=== PATIENT | male | born 1970 | race Caucasian/White ===

== ENCOUNTER 2020-11-29 15:12 | Outpatient (REF) | payer MEDICARE, MEDICAID, SELFPAY ==
[2020-11-29 16:32] LABS: Estimated Average Glucose 97 mg/dL
[2020-11-29 16:48] LABS: Alanine Aminotransferase 24 U/L (0-40); Aspartate Amino Transferase 41 U/L (5-37); Cholesterol 178 mg/dL; Glucose Fasting 80 mg/dL (60-99); HDL Cholesterol 67 mg/dL; LDL Cholesterol Calculated 98 mg/dl; Triglycerides 67 mg/dL
[2020-11-29 17:08] LABS: PSA,Total (Free>4and<10) 0.75 ng/mL (0.00-4.00); Vitamin D 25-OH Total 24.9 ng/mL (>30)
== END 2020-11-29 15:13 | disposition home or self-care (01) ==
LOC: HO.HMGCLDS 15:12
PROVIDERS: PCP Internal Medicine; Visit Provider Internal Medicine
DX: R73.9 Hyperglycemia, unspecified (principal); M81.0 Age-related osteoporosis without current pathological fracture; Q78.0 Osteogenesis imperfecta; I10 Essential (primary) hypertension; Z12.5 Encounter for screening for malignant neoplasm of prostate
CPT/HCPCS: 36415; 80061; 82306; 82947; 83036; 84153; 84450; 84460

== ENCOUNTER 2022-06-25 12:56 | Outpatient (REF) | payer MEDICARE, MEDICAID, SELFPAY ==
[2022-06-25 14:28] LABS: Anion Gap 11 (12-20); Blood Urea Nitrogen 8 mg/dL (9-16); Calcium 11.1 mg/dL (8.4-10.2); Carbon Dioxide 30 mmol/L (22-29); Chloride 99 mmol/L (96-108); Cholesterol 160 mg/dL; Estimated Glomerular Filt Rate > 60; Glucose Fasting 92 mg/dL (60-99); HDL Cholesterol 61 mg/dL; LDL Cholesterol Calculated 86 mg/dl; Potassium 4.2 mmol/L (3.3-5.1); Sodium 136 mmol/L (135-145); Triglycerides 68 mg/dL
== END 2022-06-25 12:57 | disposition home or self-care (01) ==
LOC: HO.HMGCLDS 12:56
PROVIDERS: PCP Internal Medicine; Visit Provider Internal Medicine
DX: I10 Essential (primary) hypertension (principal)
CPT/HCPCS: 36415; 80048; 80061

== ENCOUNTER 2023-01-16 12:55 | Outpatient (AMB) | payer MEDICARE, MEDICAID, SELFPAY ==
[2023-01-16 13:18] VITALS: BP 110/80; PULSE 77; O2SAT 97
--- NOTE | 2023-01-16 13:18 | MHC.PC.OV ---
Vital Signs 01/16/23 13:18 BMI Reason not done Patient refused/unable BP 110/80 Blood Pressure Location Rt brachial Position Sitting Pulse 77 Pulse Source Pulse Oximeter Pulse Oximetry (%) 97 Oxygen Delivery Method Room Air Intake Visit Reasons: Left shoulder pain Intake Note: Pt is here today c/o Lt shoulder pain no injury noted [id number] Allergies erythromycin base Allergy (Mild, Verified 01/16/23 13:19) Gastrointestinal Upset, Stomach upset albuterol Allergy (Unknown, Verified 01/16/23 13:19) Difficulty Breathing Medication List - Last Reconciled 01/16/23 by Ashanti Sims MD aspirin (Adult Low Dose Aspirin) 81 mg PO DAILY calcium acetate(phosphat bind) (Phoslyra) 667 mg PO BID cholecalciferol (vitamin D3) 50 mcg PO DAILY enalapril maleate mg PO ipratropium bromide 2.5 mL inhalation TID [Motorized wheelchair As directed Replacement wheelchair-with recline and tilt options. ] Tobacco use date assessed: 01/16/23 Dental Screening Dental Screen Date: 01/16/23 Did you have a dental visit in the last 12 months?: No Was dental information given to patient?: No HPI Left shoulder pain HPI Details 52-year-old male with history of osteogenesis imperfecta, here today complaining of recurrent pain in his left shoulder lateral aspect. This has been present now for the last several months, no history of any fall, no injury. Patient states that it hurts more when he low lies on his left side. Has tried taking up ibuprofen and Tylenol which affords only temporary relief. [facility] Medical History Cryptorchidism Essential hypertension Intolerance to BiPAP/CPAP Kyphoscoliosis Left shoulder pain Mitral valve regurgitation Mixed hearing loss, bilateral Multiple fractures Myopia of both eyes Obstructive sleep apnea Osteogenesis imperfecta Osteoporosis Otalgia of left ear Pertrochanteric fracture of left femur Restrictive lung disease Surgical History History of stapedectomy S/P balloon mitral valvuloplasty S/P ORIF (open reduction internal fixation) fracture Family History Father Colon cancer, Onset Age: 69 Essential hypertension Asthma Mother Essential hypertension Asthma Social History Housing: Apartment Alcohol intake: current Patient Tobacco Use Status: Former Tobacco user Years Smoked: 17 yrs e-Cigarette/Vaping Use: Never Used Current occupational status: disabled Cognitive needs: No Hearing needs: No Vision needs: Yes Questionnaire PHQ-9 Over the last 2 weeks, how often have you been bothered by any of the following problems? 1. Little interest or pleasure in doing things: not at all 2. Feeling down, depressed, or hopeless: not at all 3. Trouble falling or staying asleep, or sleeping too much: not at all 4. Feeling tired or having little energy: not at all 5. Poor appetite or overeating: not at all 6. Feeling bad about yourself - or that you are a failure or have let yourself or your family down: not at all 7. Trouble concentrating on things, such as reading the newspaper or watching television: not at all 8. Moving or speaking so slowly that other people could have noticed. Or the opposite - being so fidgety or restless that you have been moving around a lot more than usual: not at all 9. Thoughts that you would be better off or of hurting yourself in some way: not at all Total score: 0 Source: Developed by Drs. Cory Giron, Pao Jiang, Justin Obrien and colleagues, with an educational karon from [employer]. Thrive Questionnaire Date Thrive assessed: 01/16/23 I am a: Patient What is your living situation today?: I have a steady place to live Within the past 12 months, did the food you bought not last and you didn't have the money to get more?: Never true Within the past 12 months, did you worry whether your food would run out before you got money to buy more?: Never true Do you have trouble paying for medicines?: No Do you have trouble getting transportation to medical appointments?: No Do you have trouble paying your heating and electricity bill?: No Do you have trouble taking care of your child, family member or friend?: No Do you have trouble with day-to-day activities such as bathing, preparing meals, shopping, managing finances, etc.?: No Are you currently unemployed and looking for a job?: No Are you interested in more education?: No AUDIT C Alcohol Use Questionnaire (AUDIT-C) 1. How often do you have a drink containing alcohol?: Monthly or less 2. How many drinks containing alcohol do you have on a typical day when you are drinking?: 1 or 2 3. How often do you have six or more drinks on one occasion?: Never Total Score: 1 PRIYANKA-7 AMB Questionnaire PRIYANKA-7 Date PRIYANKA - 7 assessed: 01/16/23 Feeling nervous, anxious, or on edge: 0 = Not at all Not being able to stop or control worryin = Not at all Worrying too much about different things: 0 = Not at all Trouble relaxin = Not at all Being so restless that it is hard to sit still: 0 = Not at all Becoming easily annoyed or irritable: 0 = Not at all Feeling afraid as if something awful might happen: 0 = Not at all Total PRIYANKA-7 score (0-4 normal; 5-9 mild; 10-14 moderate; 15-21 severe): 0 Source: Developed by Drs. Cory Giron, Pao Jiang, Justin Obrien and colleagues, with an educational karon from [employer]. Review of Systems Const Reports no additional complaints and Denies weakness Musc Reports no additional complaints, Denies atrophy, Denies deformity, Denies joint swelling, Denies limited range of motion, Denies muscle cramps, Denies muscle weakness, Denies numbness, Denies radiating pain into limb, Denies stiffness and Denies tingling Skin/Breast Denies lesions and Denies rash Neuro Denies numbness, Denies tingling, Denies paresthesias and Denies weakness Physical exam (Primary Care) Vital Signs: Last Vital Signs Pulse 77 01/16/23 13:18 BP 110/80 01/16/23 13:18 Pulse Ox 97 01/16/23 13:18 Oxygen Delivery Method Room Air 01/16/23 13:18 Tobacco/Smoking Status: Tobacco use Status Tobacco use date assessed 01/16/23 01/16/23 13:21 Patient Tobacco Use Status Former Tobacco user 01/16/23 13:21 e-Cigarette/Vaping Use Never Used 01/16/23 13:21 PHQ-9: PHQ-9 Score PHQ-9: Total score 0 01/16/23 13:40 Thrive Assessment: Date of Thrive Assessment Date Thrive assessed 01/16/23 01/16/23 13:26 Const Other: Alert oriented x3 acute cardiorespiratory distress Neck Neck: Yes full ROM, Yes no lymphadenopathy and Yes supple Skin General skin exam: no rashes or lesions noted Neuro Other: Good auto body technician strength bilaterally, MMT 5/5 left upper extremity Extrem Other: Manjula range of motion of left upper extremity and shoulder, no tenderness on palpation over left shoulder joint or subacromial bursa, no gross bone deformity or joint swelling seen Assessment and Plan Assessment & Plan (1) Left shoulder pain: Code(s): M25.512 - Pain in left shoulder Plan: X-ray of left shoulder ordered, advised to try massaging absorbent iva liniment to affected area, and may take an occasional ibuprofen alternating with Tylenol as needed for pain, return to clinic if no improvement of symptoms noted Orders: Orders XR shoulder LT min 2V Today M25.512 - Pain in left shoulder Coding Level of Care Code Est Pt Level 3 (97205) Diagnoses Left shoulder pain M25.512
== END 2023-01-16 14:01 | disposition home or self-care (01) ==
PROVIDERS: PCP Internal Medicine; Visit Provider Internal Medicine
DX: M25.512 Pain in left shoulder (principal)
CPT/HCPCS: 99213

== ENCOUNTER 2023-01-16 13:44 | Outpatient (REF) | payer MEDICARE, MEDICAID, SELFPAY ==
--- NOTE | ~2023-01-16 | XR_ITS ---
EXAMINATION: XR SHOULDER, LEFT CLINICAL INFORMATION: Pain. Patient with history of osteogenesis imperfecta COMPARISON: None available. TECHNIQUE: AP external rotation, Grashey, scapular Y, and axillary views of the left shoulder. FINDINGS: Diffuse demineralization and limited evaluation of the left shoulder due to chronic deformity and examination being performed in wheelchair. No definite acute fracture recognized. The visualized left humerus is shortened and bowed. Left humeral head with multiple sclerotic foci. Elbow articulations do not appear normal. Apparent thoracic cage deformity. Hypertrophic changes visualized cervical spine. Median sternotomy wires are partially visualized. Cardiac silhouette appears prominent. XR/XR shoulder LT min 2V IMPRESSION: Multiple chronic-appearing bony deformities. No definite acute bony pathology given study limitations.
== END 2023-01-16 13:45 | disposition home or self-care (01) ==
LOC: HO.HMGCX 13:44
PROVIDERS: PCP Internal Medicine; Visit Provider Internal Medicine
DX: M25.512 Pain in left shoulder (principal)
CPT/HCPCS: 73030

== ENCOUNTER 2024-08-03 13:07 | Outpatient (AMB) | payer MEDICARE, MEDICAID, SELFPAY ==
--- NOTE | 2024-08-03 13:22 | MHC.PC.OV ---
Vital Signs 08/03/24 13:24 BMI Reason not done Patient refused/unable BP 110/60 Blood Pressure Location Lt brachial Position Sitting Respiration 18 Pulse 91 Pulse Source Pulse Oximeter Temp 98.1 F Temp Source Oral Pulse Oximetry (%) 96 Oxygen Delivery Method Room Air Intake Visit Reasons: f/u back pain, ok'd kat Intake Note: Pt is here today c/o upper right back pain Allergies erythromycin base Allergy (Mild, Verified 08/03/24 15:33) Gastrointestinal Upset, Stomach upset albuterol Allergy (Unknown, Verified 08/03/24 15:33) Difficulty Breathing Medication List - Last Reconciled 08/03/24 by Asahnti Sims MD alum-mag hydroxide-simeth 200-200-20 mg/5 mL (Maalox Advanced) 5 mL PO Q3H PRN aspirin (Adult Low Dose Aspirin) 81 mg PO DAILY cholecalciferol (vitamin D3) 100 mcg PO DAILY losartan 50 mg PO DAILY [Motorized wheelchair As directed Replacement wheelchair-with recline and tilt options. ] Tobacco use date assessed: 08/03/24 Dental Screening Dental Screen Date: 08/03/24 Did you have a dental visit in the last 12 months?: No Did you have a dental problem in the last 6 months where you did not have access to dental care?: No Was dental information given to patient?: No (no teeth) HPI f/u back pain, ok'd kat HPI Details 54-year-old male with history of severe osteogenesis imperfecta currently being followed at [facility] by Dr. Fernanda Vargas , has restrictive lung disease mixed hearing loss, mitral valve regurgitation, and hypertension, here today for follow-up . He has been having intermittent episodes of lower abdominal pain sometimes radiating to the back accompanied by burning on urination which started 2 months ago.. He was initially seen at urgent care clinic and was sent to [facility] due to presence of thickening in the bladder galeana noted on CT scan of the abdomen and pelvis. No kidney stone or renal mass seen Used to smoke cigarettes for a total of 17 years quit approximately 10 years ago patient received treatment for presumed urinary tract infection but urine cultures came back negative. Urine cytology has been sent with results still pending and he is scheduled for a cystoscopy later this month He also complains of occasional pain in right mid back, comes and goes and is unrelated to food intake. He has been seeing Dr. Fernanda Vargas at [facility] endocrine clinic for his osteogenesis imperfecta and osteoporosis. He has been on alendronate initially and then switched to Reclast, last treatment given was in 2017. Patient states that he is overdue for his follow-up visit with her and will schedule appointment. [facility] Medical History (Updated 08/03/24 @ 15:59 by Ashanti Sims MD) Bladder wall thickening Multiple fractures Myopia of both eyes Cryptorchidism Kyphoscoliosis Intolerance to BiPAP/CPAP Obstructive sleep apnea Mixed hearing loss, bilateral Mitral valve regurgitation Osteoporosis Essential hypertension Restrictive lung disease Osteogenesis imperfecta Surgical History S/P ORIF (open reduction internal fixation) fracture History of stapedectomy S/P balloon mitral valvuloplasty Family History Father Colon cancer, Onset Age: 69 Essential hypertension Asthma Mother Essential hypertension Asthma Social History Housing: Apartment Alcohol intake: current Patient Tobacco Use Status: Former Tobacco user Years Smoked: 17 yrs e-Cigarette/Vaping Use: Never Used Current occupational status: disabled Cognitive needs: No Hearing needs: No Vision needs: Yes Questionnaire PHQ-9 Over the last 2 weeks, how often have you been bothered by any of the following problems? 1. Little interest or pleasure in doing things: not at all 2. Feeling down, depressed, or hopeless: not at all 3. Trouble falling or staying asleep, or sleeping too much: not at all 4. Feeling tired or having little energy: not at all 5. Poor appetite or overeating: not at all 6. Feeling bad about yourself - or that you are a failure or have let yourself or your family down: not at all 7. Trouble concentrating on things, such as reading the newspaper or watching television: not at all 8. Moving or speaking so slowly that other people could have noticed. Or the opposite - being so fidgety or restless that you have been moving around a lot more than usual: not at all 9. Thoughts that you would be better off or of hurting yourself in some way: not at all Total score: 0 Depression Screening Interpretation: Negative Depression Screening Done: Yes 77507 - PHQ-9 Billing: Yes Source: Developed by Drs. Cory Giron, Pao Jiang, Justin Obrien and colleagues, with an educational karon from [employer]. Thrive Questionnaire Date Thrive assessed: 07/31/24 I am a: Patient What is your living situation today?: I have a steady place to live Within the past 12 months, did the food you bought not last and you didn't have the money to get more?: Never true Within the past 12 months, did you worry whether your food would run out before you got money to buy more?: Never true Do you have trouble paying for medicines?: No Do you have trouble getting transportation to medical appointments?: No Do you have trouble paying your heating and electricity bill?: No Do you have trouble taking care of your child, family member or friend?: No Do you have trouble with day-to-day activities such as bathing, preparing meals, shopping, managing finances, etc.?: Yes Are you currently unemployed and looking for a job?: No Are you interested in more education?: No Please select the resources that you would like help with: None Currently or been in a relationship where the following occur: No concerns reported THRIVE Score: 0 AUDIT C Alcohol Use Questionnaire (AUDIT-C) 1. How often do you have a drink containing alcohol?: 2-4 times a month 2. How many drinks containing alcohol do you have on a typical day when you are drinking?: 3 or 4 3. How often do you have six or more drinks on one occasion?: Never Total Score: 3 PRIYANKA-7 AMB Questionnaire PRIYANKA-7 Date PRIYANKA - 7 assessed: 08/03/24 Feeling nervous, anxious, or on edge: 0 = Not at all Not being able to stop or control worryin = Not at all Worrying too much about different things: 0 = Not at all Trouble relaxin = Not at all Being so restless that it is hard to sit still: 0 = Not at all Becoming easily annoyed or irritable: 0 = Not at all Feeling afraid as if something awful might happen: 0 = Not at all Total PRIYANKA-7 score (0-4 normal; 5-9 mild; 10-14 moderate; 15-21 severe): 0 Source: Developed by Drs. Cory Giron, Pao Jiang, Justin Obrien and colleagues, with an educational karon from [employer]. Review of Systems Const Denies fever(s) and Denies headache(s) ENT Denies headache(s) and Reports hearing loss Card Reports no additional complaints and Denies dyspnea Resp Denies cough and Denies dyspnea GI Reports no additional complaints, Denies hematochezia and Denies change in bowel habits Reports as per HPI Musc Details: Uses power wheelchair get around Neuro Denies headache(s) Lewis/Lymph Reports no additional complaints Physical exam (Primary Care) Vital Signs: Last Vital Signs Temp 98.1 F 08/03/24 13:24 Pulse 91 08/03/24 13:24 Resp 18 08/03/24 13:24 BP 110/60 08/03/24 13:24 Pulse Ox 96 08/03/24 13:24 Oxygen Delivery Method Room Air 08/03/24 13:24 Tobacco/Smoking Status: Tobacco use Status Tobacco use date assessed 08/03/24 08/03/24 13:24 Patient Tobacco Use Status Former Tobacco user 08/03/24 13:24 e-Cigarette/Vaping Use Never Used 08/03/24 13:24 PHQ-9: PHQ-9 Score PHQ-9: Total score 0 08/03/24 14:10 Depression Screening Interpretation: Negative Thrive Assessment: Date of Thrive Assessment Date Thrive assessed 07/31/24 08/03/24 13:24 Currently or been in a relationship where the following occur: No concerns reported Const Other: Alert oriented x3, no acute cardiorespiratory distress, wheelchair borne Orientation/consciousness: patient oriented x3 [facility] Head: Yes No palpable skull fracture present, No hematoma and No scalp tenderness Face and sinus: Yes face symmetric Mouth: moist mucous membranes Neck Neck: Yes no lymphadenopathy Chest Chest palpation & inspection: no crepitus and no tenderness Resp Effort & Inspection: able to speak in complete sentences Auscultation: clear to auscultation bilaterally Cardio Other: S1-S2 present regular rate and rhythm , systolic murmur left sternal border GI Other: Soft, normal bowel sounds, nontender Back/Spine/Pelvis Other: kyphoscoliosis, no tenderness on palpation Skin General skin exam: no rashes or lesions noted Neuro General: patient oriented x3 Cognition (Neuro): normal cognition Coding Level of Care Code Est Pt Level 4 (27336) Complex EM visit Add On G2211 Diagnoses Osteogenesis imperfecta Q78.0 Osteoporosis M81.0 Bladder wall thickening N32.89 Back pain M54.9 Dyspepsia R10.13 Additional Codes PHQ-9 - 05294 - PHQ-9 Billing: Yes ([id number]) Assessment & Plan Assessment & Plan (1) Osteogenesis imperfecta: Code(s): Q78.0 - Osteogenesis imperfecta Category: Medical Plan: Currently being seen at [facility] endocrine clinic, overdue for his yearly follow-up. Patient states that he was schedule appointment to see if he is due for his Reclast infusion. (2) Osteoporosis: Code(s): M81.0 - Age-related osteoporosis without current pathological fracture Category: Medical Plan: Continue with vitamin-D 3 drops and calcium supplements. Followed at [facility] endocrine clinic by Dr. Essence Vargas (3) Bladder wall thickening: Code(s): N32.89 - Other specified disorders of bladder Category: Medical Plan: Being followed at [facility] with urine cytology results still pending, has an appointment for a cystoscopy next week. (4) Back pain: Code(s): M54.9 - Dorsalgia, unspecified Plan: The history of recent fractures. (5) Dyspepsia: Code(s): R10.13 - Epigastric pain Plan: Prescription sent for Maalox advanced, to take 5 mL every 3 hours as needed for episodes of dyspepsia/ abdominal discomfort to see if it relieves it Medications: New alum-mag hydroxide-simeth 200-200-20 mg/5 mL (Maalox Advanced) 5 mL PO Q3H PRN 3,000 mL 0RF dyspepsia
[2024-08-03 13:24] VITALS: BP 110/60; PULSE 91; RESP 18; TEMP 36.7; O2SAT 96
--- OUTSIDE RECORDS SUMMARY | 2024-08-03 14:29 | XMS_ITS | Data Portability ---
Author Organization [place] [facility], Allergy Address [address] [address] Care Team Providers Care Production Solderer Name Role Phone CHRISTY DENNIS Primary Care Provider Assessment Encounter Date Assessment Date Assessment LastModified by Organization Details LastModified Time 11/24/2023 11/24/2023 Patient presents for cerumen removal. Cerumen removed bilaterally without difficulty. Follow up as scheduled for repeat procedure. mick Not available 11/24/2023 11:50:41 05/06/2024 05/06/2024 Patient presents for cerumen removal. Cerumen removed bilaterally without difficulty. Follow up as scheduled for repeat procedure. mick Not available 05/06/2024 11:52:41 07/12/2024 07/12/2024 53-year-old male with osteogenesis imperfecta and with previous stapedectomy presents for updated hearing test. Audiometric testing was performed today showing stable mixed hearing loss bilaterally which is slightly worse on the right side than in the left. He was provided a copy and will bring this to his hearing aid provider for any necessary adjustments. No cerumen noted on exam today. Follow-up as scheduled for cerumen removal. mick Not available 07/12/2024 14:46:18 Plan of Treatment Reminders Order Date Submit Date Provider Last Modified By Organization Details Last Modified Time Details Appointments Establish ed 15 2024 02:15P Karen OTRIZ PA-C Not available Not available Not available Lab None recorded. Referral None recorded. Procedures None recorded. Surgeries None recorded. Imaging None recorded. Medication Orders None recorded. Patient TargetsNo targets recorded. Patient InstructionsNo instructions recorded. Reason for Referral None Reported. Results Created Date Observation Date Name Description Value Unit Range Abnormal Flag Note LastModifiedBy Organization Detail LastModifiedTime 02/10/2008/08/2021 imagi ng/di agnos tic resul t No observ ation record ed. [email or web address] Not Available 02:04:55 02/10/20 24 09/30/2018 audio gram No observ ation record ed. [email or web address] Not Available 02:04:57 02/10/20 24 11/14/2021 imagi ng/di agnos tic resul t No observ ation record ed. [email or web address] Not Available 02:05:12 02/10/20 24 11/18/2022 imagi ng/di agnos tic resul t No observ ation record ed. [email or web address] Not Available 02:05:20 02/10/20 24 11/19/2023 imagi ng/di agnos tic resul t No observ ation record ed. [email or web address] Not Available 02:05:25 02/10/20 24 11/22/2020 imagi ng/di agnos tic resul t No observ ation record ed. [email or web address] Not Available 02:05:27 02/10/20 24 12/15/2018 imagi ng/di agnos tic resul t No observ ation record ed. [email or web address] Not Available 02:05:30 02/10/20 24 12/15/2018 imagi ng/di agnos tic resul t No observ ation record ed. [email or web address] Not Available 02:05:32 02/10/20 24 02/02/2020 imagi ng/di agnos tic resul t No observ ation record ed. [email or web address] Not Available 02:05:46 02/10/20 24 04/30/2021 imagi ng/di agnos tic resul t No observ ation record ed. [email or web address] Not Available 02:05:56 02/10/20 24 04/30/2021 imagi ng/di agnos tic resul t No observ ation record ed. [email or web address] Not Available 02:06:00 02/10/20 24 05/08/2023 imagi ng/di agnos tic resul t No observ ation record ed. [email or web address] Not Available 02:06:02 02/10/20 24 05/08/2023 imagi ng/di agnos tic resul t No observ ation record ed. [email or web address] Not Available 02:06:04 02/10/20 24 05/23/2021 imagi ng/di agnos tic resul t No observ ation record ed. [email or web address] Not Available 02:06:09 02/10/20 24 08/08/2021 audio gram No observ ation record ed. [email or web address] Not Available 02:06:15 02/10/20 24 09/30/2018 audio gram No observ ation record ed. [email or web address] Not Available 02:06:30 02/10/20 24 11/22/2020 audio gram No observ ation record ed. [email or web address] Not Available 02:07:10 02/10/20 24 02/02/2020 audio gram No observ ation record ed. [email or web address] Not Available 02:07:22 02/10/20 24 05/08/2023 audio gram No observ ation record ed. [email or web address] Not Available 02:08:01 02/10/20 24 05/23/2021 audio gram No observ ation record ed. [email or web address] Not Available 02:08:12 07/13/19 audio gram No observ ation record ed. [email or web address] Not Available 2024 13:53:07 Result Notes None recorded. Problems Name Problem SNOMED Code Status Onset Date Resolution Date Notes Provider Name and Address Organization Details Recorded Time Impacted cerumen of bilatera l ears 91542463672 53972 Active 2017 Impacted chandni landaverde; Note: Date Diagnose d: 09/28/2017 1:10 PM (H61.23) Impact ed chandni landaverde; Note: Date Diagnose d: 03/31/20 17 11:59 AM (H61.23) ; Start Date : 03/31/20 17 Not Available [facility] 4 02:53:58 Abnormal auditory percepti on 34678230 Active 2020 Other abnormal auditory percepti ons, left ear; Note: Date Diagnose d: 1 1:01 PM (H93.292 ) Other abnormal auditory percepti ons, left ear; Note: Date Diagnose d: 04/09/20 16 1:49 PM (H93.292 ) ; Start Date : 04/09/20 16 Not Available [facility] 4 02:54:00 Follow-u p visit Completed 201601/22/2024 Medical surveill ance followin g complete d treatmen t; Note: Date Diagnose d: 7 1:04 PM (Z09) Encoun ter for follow-u p examinat ion after complete d treatmen t for conditio ns other than malignan t neoplasm ; Start Date : 10/19/19 16 Not Available [facility] 4 02:53:59 Acute serous otitis media of left ear [id number] 72390 Completed 201501/22/2024 Acute serous otitis media, left ear; Note: Date Diagnose d: 6 1:29 PM (H65.02) Not Available [facility] 4 02:53:57 Dysphagi a 79186396 Active 2018 Other dysphagi a; Note: Date Diagnose d: 12/27/2018 1:30 PM (R13.19) Not Available [facility] 4 02:53:56 Conducti ve hearing loss 82153245 Active 2015 Hearing loss, conducti ve; Note: Date Diagnose d: 6 11:58 AM (389.00) Not Available [facility] 4 02:54:01 Otoscler osis 37918650 Active 2015 Otoscler osis, unspecif ied; Note: Date Diagnose d: 6 11:58 AM (387.9) Otoscl erosis, unspecif ied; Note: Date Diagnose d: 5 10:20 AM (387.9) ; Start Date : 02/13/20 15 Not Available [facility] 4 02:53:58 Sudden idiopath ic hearing loss 060759893 Active 2020 Sudden idiopath ic hearing loss, right ear; Note: Date Diagnose d: 1 5:43 PM (H91.21) Not Available [facility] 4 02:53:57 Impacted cerumen in left ear 26709335027 92235 Active 2017 Impacted cerumen, left ear; Note: Date Diagnose d: 8 2:33 PM (H61.22) Not Available [facility] 4 02:54:02 Tinnitus 61953125 Active 2014 Tinnitus , unspecif ied ear; Note: Date Diagnose d: 5 9:52 AM (H93.19) [mapped from ICD9 code: 388.31] Not Available [facility] 4 02:53:57 Sensorin eural hearing loss in right ear 11358205285 100 Active 2017 Sensorin eural hearing loss, unilater al, right ear, with restrict ed hearing on the contrala teral side; Note: Date Diagnose d: 09/28/2017 2:49 PM (H90.A21 ) Not Available [facility] 4 02:54:01 Posterio r rhinorrh ea 21275346 Active 2018 Postnasa l drip; Note: Date Diagnose d: 9 4:58 PM (R09.82) Not Available [facility] 4 02:54:01 Osteogen esis imperfec ta 90342018 Active 2015 Osteogen esis imperfec ta; Note: Date Diagnose d: 6 5:40 PM (Q78.0) Not Available [facility] 4 02:53:58 Benign paroxysm al position al vertigo 009452820 Active 2018 Benign paroxysm al vertigo, bilatera l; Note: Date Diagnose d: 9 5:29 PM (H81.13) Not Available [facility] 4 02:53:58 Mixed conducti ve and sensorin eural hearing loss, bilatera l 935248078 Active 2021 Mixed HL, bilatera l; Note: Date Diagnose d: 5 9:52 AM (389.22) ; Start Date : 02/13/20 15 Mixed conducti ve and sensorin eural hearing loss, bilatera l; Note: Date Diagnose d: 2 2:16 PM (H90.6) Mixed conducti ve and sensorin eural hearing loss, bilatera l; Note: Date Diagnose d: 1 5:43 PM (H90.6) ; Start Date : 05/23/20 21 Mixed conducti ve and sensorin eural hearing loss, bilatera l; Note: Date Diagnose d: 5 9:52 AM (H90.6) [mapped from ICD9 code: 389.22] ; Start Date : 02/13/20 15 Not Available [facility] 4 02:53:56 Conducti ve hearing loss, bilatera l 069810197 Active 2019 Conducti ve hearing loss, bilatera l; Note: Date Diagnose d: 0 2:39 PM (H90.0) Not Available [facility] 4 02:54:01 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 15185587 Active 2015 Otoscler osis involvin g oval window, oblitera tive, left ear; Note: Date Diagnose d: 6 5:39 PM (H80.12) Not Available [facility] 4 02:54:02 Subjecti ve tinnitus 39464048 Active 2014 Tinnitus ; Note: Date Diagnose d: 5 9:52 AM (388.31) Not Available [facility] 4 02:53:56 Postoper ative follow-u p visit Active 2015 Post op; Note: Date Diagnose d: 6 11:58 AM (V67.00) Not Available [facility] 4 02:53:59 Bilatera l tinnitus 93822497568 02 Active 2017 Tinnitus , bilatera l; Note: Date Diagnose d: 09/28/2017 2:01 PM (H93.13) Not Available [facility] 4 02:54:02 Obstruct lea sleep apnea syndrome 80644237 Active 2016 Obstruct lea sleep apnea (adult) (pediatr ic); Note: Date Diagnose d: 11/25/2016 3:04 PM (G47.33) Not Available [facility] 4 02:54:00 Gastroes ophageal reflux disease without esophagi tis 714429687 Active 2018 Esophage al reflux NOS; Note: Date Diagnose d: 9 5:29 PM (K21.9) Not Available [facility] 4 02:53:56 Mixed conducti ve and sensorin eural hearing loss of left ear 41604074427 107 Active 2017 Mixed conducti ve and sensorin eural hearing loss, unilater al, left ear with restrict ed hearing on the contrala teral side; Note: Date Diagnose d: 09/28/2017 2:49 PM (H90.A32 ) Not Available [facility] 4 02:54:00 Disorder of left Eustachi an tube 74848837124 12337 Active 2020 Other specifie d disorder s of Eustachi an tube, left ear; Note: Date Diagnose d: 1 12:59 PM (H69.82) Other specifie d disorder s of Eustachi an tube, left ear; Note: Date Diagnose d: 6 1:29 PM (H69.82) ; Start Date : 12/13/19 16 Not Available [facility] 4 02:53:59 Problem Notes None recorded. Procedures Surgical History Date Name Laterality Status Provider Name and Address Organization Details Recorded Time 5 Comp Audio with Tymps (29929 & 83998) completed ANDREW URCUIOLI, [place], CCC-A [address] [facility],[address], [place], [address], [place] - [facility] 07/12/2024 14:28:21 Cerumen removal without microscope bilat completed JASMIN ORTIZ PA-C [address] [facility],[address], [place], [address], [place] - [facility] 05/06/2024 11:52:16 Cerumen removal without microscope bilat completed JASMIN ORTIZ PA-C [address] [facility],[address], [place], [address], [facility] - [facility] 11/24/2023 11:50:26 Imaging Results Imaging Date Name Status LastModified by [facility] Details LastModified Time 08/08/2021 imaging/diagno stic result completed Information not available 02/10/2024 02:04:55 09/30/2018 audiogram completed Information not available 02/10/2024 02:04:57 11/14/2021 imaging/diagno stic result completed Information not available 02/10/2024 02:05:12 11/18/2022 imaging/diagno stic result completed Information not available 02/10/2024 02:05:20 11/19/2023 imaging/diagno stic result completed Information not available 02/10/2024 02:05:25 11/22/2020 imaging/diagno stic result completed Information not available 02/10/2024 02:05:27 12/15/2018 imaging/diagno stic result completed Information not available 02/10/2024 02:05:30 12/15/2018 imaging/diagno stic result completed Information not available 02/10/2024 02:05:32 02/02/2020 imaging/diagno stic result completed Information not available 02/10/2024 02:05:46 04/30/2021 imaging/diagno stic result completed Information not available 02/10/2024 02:05:56 04/30/2021 imaging/diagno stic result completed Information not available 02/10/2024 02:06:00 05/08/2023 imaging/diagno stic result completed Information not available 02/10/2024 02:06:02 05/08/2023 imaging/diagno stic result completed Information not available 02/10/2024 02:06:04 05/23/2021 imaging/diagno stic result completed Information not available 02/10/2024 02:06:09 08/08/2021 audiogram completed Information not available 02/10/2024 02:06:15 09/30/2018 audiogram completed Information not available 02/10/2024 02:06:30 11/22/2020 audiogram completed Information not available 02/10/2024 02:07:10 02/02/2020 audiogram completed Information not available 02/10/2024 02:07:22 05/08/2023 audiogram completed Information not available 02/10/2024 02:08:01 05/23/2021 audiogram completed Information not available 02/10/2024 02:08:12 07/13/2024 audiogram completed BARCODE Information no t available 07/13/2024 13:53:07 Procedure Notes None recorded. Medical Equipment None Reported. Allergies Allergen ID Allergen Name Allergen Category Reaction Reaction Severity Criticality Documentation Date Start Date Code Code System Note Provider Name and Address Organization Details Recorded Time 304548 albuterol medicatio n other Not available Not available 11/03/2023 435 RxNorm React ion: unkno wn, unspe cifie d;; Not Available [facility] 4 01:23:22 512165 erythromy néstor ethylsucc inate medicatio n other Not available Not available 11/03/2023 4056 RxNorm React ion: unkno wn, unspe cifie d;; Not Available [facility] 4 01:23:22 Medications Name Sig Start Date Stop Date Status Note LastModified by Organization Details LastModified Time losartan 50 mg tablet TAKE 1 TABLET BY MOUTH DAILY active Not Available Not Available No t Available prednison e 10 mg tablet 05/06 completed Medicati on ID: [id number] D uration Value: 14 Prescri bed By Name: Urszula Avalos nd Name: predniso ne Send Method: E-Prescr ibed Sub s Allowed: subs OK Speci al Instruct ion: Take 2 tablets once a day for 9 days , then take 1 tablets on day 10 and 11, 1/2 tablets on day 12 and 13 Medic ationGen ericName : predniso ne Not Available Not Available Not Available sodium chloride 3 % for nebulizat ion 08/06 completed Medicati on ID: [id number] Du ration Value: 30 Brand Name: sodium chloride Send Method: E-Prescr ibed Sub s Allowed: subs OK Speci al Instruct ion: MIX WITH IPRATROP RIUM SOLUTION TWICE A DAY Medi cationGe nericNam e: sodium chloride Not Available Not Available Not Available enalapril maleate 2.5 mg tablet 07/11 completed Not Available Not Available Not Available Aspir-Low 81 mg tablet,de layed release 2014 active Medicati on ID: [id number] Br and Name: Aspir-Lo w Send Method: E-Prescr ibed Sub s Allowed: subs OK Medic ationGen ericName : Aspir-Lo w Not Available Not Available Not Available Ciloxan 0.3 % eye drops 11/25 completed Medicati on ID: [id number] Mel chaves By Name: ALEKSANDAR Garcia nd Name: Ciloxan Send Method: E-Prescr ibed Sub s Allowed: subs OK Speci al Instruct ion: Instill 4 drops twice a day into affected ear for 10 days Med icationG enericNa me: Ciloxan Not Available Not Available Not Available oxycodone 5 mg capsule TAKE 1 CAPSULE BY MOUTH EVERY 6 HOURS NEEDED FOR PAIN 05/06 completed Not Available Not Available Not Available sertralin e 25 mg tablet 08/06 completed Medicati on ID: [id number] B rand Name: sertrali ne Send Method: E-Prescr ibed Sub s Allowed: subs OK Medic ationGen ericName : sertrali ne Not Available Not Available Not Available furosemid e 20 mg tablet 08/06 completed Medicati on ID: [id number] Du ration Value: 30 Brand Name: furosemi de Send Method: E-Prescr ibed Sub s Allowed: subs OK Speci al Instruct ion: take 1 tablet by mouth once daily Me dication GenericN nelson: furosemi de Not Available Not Available Not Available Thayer 5 mg-325 mg tablet 1-2 tablet by mouth 05/06 completed Medicati on ID: [id number] D uration Value: 7 Prescri bed By Name: Urszula Avalos nd Name: Thayer Se nd Method: E-Prescr ibed Sub s Allowed: subs OK Medic ationGen ericName : Thayer Not Available Not Available Not Available fluticaso ne propionat e 50 mcg/actua tion nasal spray,emmett pension 07/11 completed Medicati on ID: [id number] B rand Name: fluticas one propiona te Send Method: E-Prescr ibed Sub s Allowed: subs OK Speci al Instruct ion: USE 2 SPRAYS INTO BOTH NOSTRILS EVERY MORNING Medicati onGeneri cName: fluticas one propiona te Not Available Not Available Not Available ipratropi um bromide 0.02 % solution for inhalatio n 08/06 completed Medicati on ID: 40705 Du ration Value: 24 Brand Name: ipratrop ium bromide Send Method: E-Prescr ibed Sub s Allowed: subs OK Medic ationGen ericName : ipratrop ium bromide Not Available Not Available Not Available oxycodone 5 mg tablet 07/11 completed Not Available Not Available Not Available Flovent HFA 44 mcg/actua tion aerosol inhaler 08/06 completed Medicati on ID: [id number] Du ration Value: 30 Brand Name: Flovent HFA Send Method: E-Prescr ibed Sub s Allowed: subs OK Speci al Instruct ion: inhale 2 puffs by mouth twice a day for 30 DAYS USE WITH SPACER C... (REFER TO PRESCRIP TION NOTES). Medicati onGeneri cName: Flovent HFA Not Available Not Available Not Available Atrovent HFA 17 mcg/actua tion aerosol inhaler 08/08 completed Medicati on ID: [id number] Du ration Value: 30 Brand Name: Atrovent HFA Send Method: E-Prescr ibed Sub s Allowed: subs OK Speci al Instruct ion: inhale 2 puffs by mouth four times a day if needed for wheezing o... (REFER TO PRESCRIP TION NOTES). Medicati onGeneri cName: Atrovent HFA Not Available Not Available Not Available Vitals Date Recorded Body height Body mass index (BMI) Body weight Provider Name and Address Organization Details Last Updated DateTime 11/24/2023 83.82 cm 35.5 kg/m2 04178.58 g Sherlyn Vieyra [place] [facility] 11/24/2023 11:24:21 Date Recorded Body height Provider Name an d Address Organization Details Last Updated DateTime 05/06/2024 83.82 cm Sherlyn Vieyra [facility] 05/06/2024 11:19:12 Social History None recorded. Functional Status None recorded. Mental Status None recorded. Family History Nothing Reported. Medical History Condition Response Allergies/Hayfever Y Heart Problems N Anxiety Y Tonsil Infections N Emphysema N Migraines N Thyroid Problems N Glaucoma N Depression N COPD N Developmental Delay N Nasal or Sinus Problems N Anemia N Immune System Disorder N Anesthesia Complications N Heart Attack ([place]) N Other Skin Condition N Diabetes N Rhinitis N Bleeding Disorder N Food Allergy N Arthritis Y Hearing Loss Y Hyperlipidemia N Cancer N Stroke N Dementia N Nasal polyps N Asthma N Sleep Disorder Y GERD/Reflux N High Cholesterol N Liver Disease N Headaches Y Fibromyalgia N Hypertension Y Speech Delay N Kidney Disease N Past Encounters Encounter ID Performer Location Encounter Start Date Encounter Closed Date Diagnosis/Indication Diagnosis SNOMED-CT Code Diagnosis ICD10 Code Diagnosis Note [id number] ELOISE MENDOZA MD [facility] [address] [address] 11/24/2023 11:03:32 11/24/2023 11:34:12 Conductive hearing loss, bilateral 084509773 H90.0 Impacted c erumen of bilateral ears 6528197502 955989 H61.23 PROCEDURE NOTEPATHOL OGY FOUND: Cerumen impaction in both earsPROCED URE: The right ear was examined using otoscopy. The cerumen was then removed using suction and/or instrument s. The same procedure was repeated on the opposite side.ABDIEL ANCE: The patient tolerated this well. OLY MICHAEL MD [facility] [address] [place] [address] 05/06/2024 10:57:34 05/06/2024 11:53:13 Mixed conductive and sensorineural hearing loss, bilateral 002001533 H90.6 Impacted c erumen of bilateral ears 6451676091 891819 H61.23 PROCEDURE NOTEPATHOL OGY FOUND: Cerumen impaction in both earsPROCED URE: The right ear was examined using otoscopy. The cerumen was then removed using suction and/or instrument s. The same procedure was repeated on the opposite side.ABDIEL ANCE: The patient tolerated this well. [id number] ELOISE MENDOZA MD [facility] [address] [address] 07/12/2024 13:30:39 07/12/2024 14:46:58 Mixed conductive and sensorineural hearing loss, bilateral 366057871 H90.6 Audiologic al evaluation results: Right ear: {{Normal N ormal through 2 kHz Mild M oderate Mo derately-s evere Mayra re Profoun d Mild sloping to#}} {{hearing hearing. s loping to a mild slopi ng to a moderate s loping to moderately severe slo ping to severe slo ping to profound f lat high frequency low frequency mid frequency cookie bite cordero curve prof ound mixed hearing loss#}} {{with* se nsorineura l hearing loss with condu ctive hearing loss with mixed hearing loss with}} {{excellen t* good fa ir poor no measurable }} word recognitio n. Left ear: {{Normal N ormal through 2 kHz Mild M oderate Mo derately-s evere Mayra re Profoun d Normal sloping to#}} {{hearing hearing. s loping to a mild slopi ng to a moderate s loping to moderately severe slo ping to severe slo ping to profound f lat high frequency low frequency mid frequency cookie bite cordero curve prof ound mixed hearing loss#}} {{with* se nsorineura l hearing loss with condu ctive hearing loss with mixed hearing loss with}} {{excellen t* good fa ir poor no measurable }} word recognitio n. Tympanomet ry: Right Ear:{{Type A Type As Type Ad Type C Type C, shallow & rounded Ty pe B Type B with large volume Cou ld not maintain a hermetic seal Type A (+175)#}} Left Ear:{{Type A Type As Type Ad Type C Type C, shallow & rounded Ty pe B Type B with large volume Cou ld not maintain a hermetic seal Type A (+180)#}} Bilateral tinnitus 85768 65552 102 H93.13 Health Concerns Section Related Observation LastModified by Organization Detai ls LastModified Time None Recorded Concern Status LastModified by Organization Details LastModified Time None Recorded Advance Directives Directive None Recorded Payers Encounter Date Sequence Insurance Name Policy Number Policy Dobbins Covered Member ID Dobbins Member ID Guarantor Name 11/24/2023 2 [place] [facility] Cory Weinberg [id number] Cory Weinberg Jr 11/24/2023 1 [employer] (MEDICARE REPLACEMENT PPO) [id number] Cory Weinberg [id number] Cory Weinberg Jr 05/06/2024 2 [place] [facility] Cory Weinberg [id number] Cory Weinberg Jr 05/06/2024 1 [employer] (MEDICARE REPLACEMENT PPO) [id number] Cory Weinberg [id number] Cory Weinberg Jr 07/12/2024 2 [place] [facility] Cory Weinberg [id number] Cory Weinberg Jr 07/12/2024 1 [employer] (MEDICARE REPLACEMENT PPO) [id number] Cory Weinberg [id number] Cory Weinberg Jr Notes Date Note Type Note Provider Name and Address Organization Details Recorded Time 11/24/2023 text/html 53-year-old male with history of osteogenesis imperfecta and previous stapedotomy presents for cerumen removal. No acute issues since his last visit though he is overdue for ear cleaning. ELOISE MENDOZA MD [address] [facility],[address], [address], [place] - [facility] [place] 11/24/2023 13:26:29 05/06/2024 text/html 53-year-old male with history of osteogenesis imperfecta and previous stapedotomy presents for cerumen removal. No acute issues since his last visit though he is overdue for ear cleaning. OLY CRANE MD [address] [place] [address],[address], [address], [facility] - [facility] [place] 05/06/2024 12:37:51 07/12/2024 text/html 53-year-old male with history of osteogenesis imperfecta and previous stapedotomy presents for updated hearing test. No acute issues since his last visit. Has hearing aids from [facility]. ELOISE MENDOZA MD [address] [facility],[address], [address], [facility] - [facility] 07/13/2024 07:26:12
--- OUTSIDE RECORDS SUMMARY | 2024-08-03 14:29 | XMS_ITS | Continuity of Care Document ---
Author Organization [place] - [facility], [facility] Address [address] [place] [address] Care Team Providers Care It Field Technician Name Role Phone CHRISTY DENNIS Primary Care Provider Assessment Encounter Date Assessment Date Assessment LastModified by Organization Details LastModified Time 07/12/2024 07/12/2024 53-year-old male with osteogenesis imperfecta [...] Appointments Establish ed 15 2024 02:15P Karen ORTIZ PA-C Not available Not available Not available Lab None recorded. Referral None recorded. Procedures None recorded. Surgeries None recorded. Imaging None recorded. Medication Orders None recorded. Patient TargetsNo targets recorded. Patient InstructionsNo instructions recorded. Reason for Referral None Reported. Results Created Date Observation Date Name Description Value Unit Range Abnormal Flag Note LastModifiedBy Organization Detail LastModifiedTime 07/13/19 25 audio gram No observ ation record ed. BARCODE Not Available 2024 13:53:07 Result Notes None recorded. Problems Name Problem SNOMED Code Status Onset Date Resolution Date Notes Provider Name and Address Organization Details Recorded Time Impacted cerumen of bilatera l ears 82858542989 52455 Active 2017 Impacted chandni landaverde; Note: Date Diagnose d: 09/28/2017 1:10 PM (H61.23) Impact ed chandni landaverde l; Note: Date Diagnose d: 03/31/20 17 11:59 AM (H61.23) ; Start Date : 03/31/20 17 Not Available [facility] 4 02:53:58 Abnormal auditory percepti on 50931699 Active 2020 Other abnormal auditory percepti ons, left ear; Note: Date Diagnose d: 1 1:01 PM (H93.292 ) Other abnormal auditory percepti ons, left ear; Note: Date Diagnose d: 04/09/20 16 1:49 PM (H93.292 ) ; Start Date : 04/09/20 16 Not Available [facility] 4 02:54:00 Follow-u p visit Completed 201601/22/2024 Medical surveill ance followin g complete d treatmen t; Note: Date Diagnose d: 7 1:04 PM (Z09) Encoun ter for follow-u p examinat ion after complete d treatmen t for conditio ns other than malignan t neoplasm ; Start Date : 10/19/19 16 Not Available [facility] 4 02:53:59 Acute serous otitis media of left ear [id number] 07740 Completed 201501/22/2024 Acute serous otitis media, left ear; Note: Date Diagnose d: 6 1:29 PM (H65.02) Not Available [facility] 4 02:53:57 Dysphagi a 51787253 Active 2018 Other dysphagi a; Note: Date Diagnose d: 12/27/2018 1:30 PM (R13.19) Not Available [facility] 4 02:53:56 Conducti ve hearing loss 04596125 Active 2015 Hearing loss, conducti ve; Note: Date Diagnose d: 6 11:58 AM (389.00) Not Available [facility] 4 02:54:01 Otoscler osis 28964519 Active 2015 Otoscler osis, unspecif ied; Note: Date Diagnose d: 6 11:58 AM (387.9) Otoscl erosis, unspecif ied; Note: Date Diagnose d: 5 10:20 AM (387.9) ; Start Date : 02/13/20 15 Not Available [facility] 4 02:53:58 Sudden idiopath ic hearing loss 292689089 Active 2020 Sudden idiopath ic hearing loss, right ear; Note: Date Diagnose d: 1 5:43 PM (H91.21) Not Available [facility] 4 02:53:57 Impacted cerumen in left ear 05502467312 30711 Active 2017 Impacted cerumen, left ear; Note: Date Diagnose d: 8 2:33 PM (H61.22) Not Available [facility] 4 02:54:02 Tinnitus 76245854 Active 2014 Tinnitus , unspecif ied ear; Note: Date Diagnose d: 5 9:52 AM (H93.19) [mapped from ICD9 code: 388.31] Not Available [facility] 4 02:53:57 Sensorin eural hearing loss in right ear 72663806017 100 Active 2017 Sensorin eural hearing loss, unilater al, right ear, with restrict ed hearing on the contrala teral side; Note: Date Diagnose d: 09/28/2017 2:49 PM (H90.A21 ) Not Available [facility] 4 02:54:01 Posterio r rhinorrh ea 03344580 Active 2018 Postnasa l drip; Note: Date Diagnose d: 9 4:58 PM (R09.82) Not Available [facility] 4 02:54:01 Osteogen esis imperfec ta 75094657 Active 2015 Osteogen esis imperfec ta; Note: Date Diagnose d: 6 5:40 PM (Q78.0) Not Available [facility] 4 02:53:58 Benign paroxysm al position al vertigo 307572517 Active 2018 Benign paroxysm al vertigo, bilatera l; Note: Date Diagnose d: 9 5:29 PM (H81.13) Not Available [facility] 4 02:53:58 Mixed conducti ve and sensorin eural hearing loss, bilatera l 098109739 Active 2021 Mixed HL, bilatera l; Note: [...] Start Date : 02/13/20 15 Not Available [facility] 4 02:53:56 Conducti ve hearing loss, bilatera l 235199992 Active 2019 Conducti ve hearing loss, bilatera l; Note: Date Diagnose d: 0 2:39 PM (H90.0) Not Available [facility] 4 02:54:01 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 71169285 Active 2015 Otoscler osis involvin g oval window, oblitera tive, left ear; Note: Date Diagnose d: 6 5:39 PM (H80.12) Not Available [facility] 4 02:54:02 Subjecti ve tinnitus 40116372 Active 2014 Tinnitus ; Note: Date Diagnose d: 5 9:52 AM (388.31) Not Available [facility] 4 02:53:56 Postoper ative follow-u p visit Active 2015 Post op; Note: Date Diagnose d: 6 11:58 AM (V67.00) Not Available [facility] 4 02:53:59 Bilatera l tinnitus 43493019982 02 Active 2017 Tinnitus , bilatera l; Note: Date Diagnose d: 09/28/2017 2:01 PM (H93.13) Not Available [facility] 4 02:54:02 Obstruct lea sleep apnea syndrome 39077486 Active 2016 Obstruct lea sleep apnea (adult) (pediatr ic); Note: Date Diagnose d: 11/25/2016 3:04 PM (G47.33) Not Available [facility] 4 02:54:00 Gastroes ophageal reflux disease without esophagi tis 438188469 Active 2018 Esophage al reflux NOS; Note: Date Diagnose d: 9 5:29 PM (K21.9) Not Available [facility] 4 02:53:56 Mixed conducti ve and sensorin eural hearing loss of left ear 53922782735 107 Active 2017 Mixed conducti ve and sensorin eural hearing loss, unilater al, left ear with restrict ed hearing on the contrala teral side; Note: Date Diagnose d: 09/28/2017 2:49 PM (H90.A32 ) Not Available [facility] 4 02:54:00 Disorder of left Eustachi an tube 92845502646 70884 Active 2020 Other specifie d disorder s of Eustachi an tube, left ear; Note: Date Diagnose d: 1 12:59 PM (H69.82) Other specifie d disorder s of Eustachi an tube, left ear; Note: Date Diagnose d: 6 1:29 PM (H69.82) ; Start Date : 12/13/19 16 Not Available [facility] 4 02:53:59 Problem Notes None recorded. Procedures Surgical History Date Name Laterality Status Provider Name and Address Organization Details Recorded Time 5 Comp Audio with Tymps (94181 & 00452) completed ANDREW CASE MA, CCC-A [address] [facility],[place] [address], [place], [address], [facility] - [facility] 07/12/2024 14:28:21 4 Cerumen removal without microscope bilat completed JASMIN ORTIZ PA-C [address] [facility],[place] [address], [place], [address], [facility] - [facility] 05/06/2024 11:52:16 4 Cerumen removal without microscope bilat completed JASMIN ORTIZ PA-C [address] [facility],[place] [address], [place], [address], [facility] 11/24/2023 11:50:26 Imaging Results None recorded. Procedure Notes None recorded. Medical Equipment None Reported. Allergies Allergen ID Allergen Name Allergen Category Reaction Reaction Severity Criticality Documentation Date Start Date Code Code System Note Provider Name and Address Organization Details Recorded Time 790763 albuterol medicatio n other Not available Not available 11/03/2023 435 RxNorm React ion: unkno wn, unspe cifie d;; Not Available [facility] 4 01:23:22 508713 erythromy néstor ethylsucc inate medicatio n other Not available Not available 11/03/2023 4056 RxNorm React ion: unkno wn, unspe cifie d;; Not Available [facility] 4 01:23:22 Medications Name Sig Start Date Stop Date Status Note LastModified by Organization Details LastModified Time losartan 50 mg tablet TAKE 1 TABLET BY MOUTH DAILY active Not Available Not Available No t Available prednison e 10 mg tablet 05/06 completed Medicati on ID: [id number] D uration Value: 14 Prescri bed By [...] nebulizat ion 08/06 completed Medicati on ID: [id number] Du ration Value: 30 Brand Name: sodium [...] layed release 2014 active Medicati on ID: [id number] Br and Name: Aspir-Lo w Send Method: E-Prescr ibed Sub s Allowed: subs OK Medic ationGen ericName : Aspir-Lo w Not Available Not Available Not Available Ciloxan 0.3 % eye drops 11/25 completed Medicati on ID: [id number] P rescribe d By Name: ALEKSANDAR Garcia nd Name: Ciloxan [...] mg tablet 08/06 completed Medicati on ID: [id number] B rand Name: sertrali ne Send Method: E-Prescr ibed Sub s Allowed: subs OK Medic ationGen ericName : sertrali ne Not Available Not Available Not Available furosemid e 20 mg tablet 08/06 completed Medicati on ID: [id number] Du ration Value: 30 Brand Name: furosemi de Send Method: E-Prescr ibed Sub s Allowed: subs OK Speci al Instruct ion: take 1 tablet by mouth once daily Me dication GenericN nelson: furosemi de Not Available Not Available Not Available Courtland 5 mg-325 mg tablet 1-2 tablet by mouth 05/06 completed Medicati on ID: [id number] D uration Value: 7 Prescri bed By Name: Eloise Dodson M.D. Bra nd Name: Courtland Se nd Method: E-Prescr ibed Sub s Allowed: subs OK Medic ationGen ericName : Courtland Not Available Not Available Not Available fluticaso ne propionat e 50 mcg/actua tion nasal spray,emmett pension 07/11 completed Medicati on ID: [id number] B rand Name: fluticas one propiona te Send Method: E-Prescr ibed Sub s Allowed: subs OK Speci al Instruct ion: USE 2 SPRAYS INTO BOTH NOSTRILS EVERY MORNING Medicati onGeneri cName: fluticas one propiona te Not Available Not Available Not Available ipratropi um bromide 0.02 % solution for inhalatio n 08/06 completed Medicati on ID: [id number] Du ration Value: 24 Brand Name: ipratrop ium bromide Send Method: E-Prescr ibed Sub s Allowed: subs OK Medic ationGen ericName : ipratrop ium bromide Not Available Not Available Not Available oxycodone 5 mg tablet 07/11 completed Not Available Not Available Not Available Flovent HFA 44 mcg/actua tion aerosol inhaler 08/06 completed Medicati on ID: [id number] Du ration Value: 30 Brand Name: Flovent [...] aerosol inhaler 08/08 completed Medicati on ID: [id number] Du ration Value: 30 Brand Name: Atrovent HFA Send Method: E-Prescr ibed Sub s Allowed: subs OK Speci al Instruct ion: inhale 2 puffs by mouth four times a day if needed for wheezing o... (REFER TO PRESCRIP TION NOTES). Medicati onGeneri cName: Atrovent HFA Not Available Not Available Not Available Vitals None Recorded Social History None recorded. Functional Status None recorded. Mental Status None recorded. Family History Nothing Reported. Medical History Condition Response Allergies/Hayfever Y Heart Problems N Anxiety Y Tonsil Infections N Emphysema N Migraines N Thyroid Problems N Glaucoma N Developmental Delay N Depression N COPD N Nasal or Sinus Problems N Anemia N Immune System Disorder N Anesthesia Complications N Heart Attack ([place]) N Other Skin Condition N Diabetes N Rhinitis N Bleeding Disorder N Food Allergy N Hearing Loss Y Arthritis Y Hyperlipidemia N Cancer N Stroke N Dementia N Nasal polyps N Asthma N Sleep Disorder Y High Cholesterol N GERD/Reflux N Liver Disease N Headaches Y Fibromyalgia N Hypertension Y Speech Delay N Kidney Disease N Past Encounters Encounter ID Performer Location Encounter Start Date Encounter Closed Date Diagnosis/Indication Diagnosis SNOMED-CT Code Diagnosis ICD10 Code Diagnosis Note [id number] ELOISE DODSON MD [facility] [address] [address] 07/12/2024 13:30:39 07/12/2024 14:46:58 Mixed conductive and sensorineural hearing loss, bilateral 822920264 H90.6 Audiologic al evaluation results: Right ear: [...] hermetic seal Type A (+180)#}} Bilateral tinnitus 76022 15446 102 H93.13 Health Concerns Section Related Observation LastModified by Organization Detai ls LastModified Time None Recorded Concern Status LastModified by Organization Details LastModified Time None Recorded Payers Encounter Date Sequence Insurance Name Policy Number Policy Dobbins Covered Member ID Dobbins Member ID Guarantor Name 07/12/2024 2 MEDICAID-[place]: [facility] Cory Weinberg [id number] Cory Weinberg Jr 07/12/2024 1 [employer] (MEDICARE REPLACEMENT PPO) [id number] Cory Weinberg [id number] Cory Weinberg Jr Notes Date Note Type Note Provider Name and Address Organization Details Recorded Time 07/12/2024 text/html 53-year-old male with history of osteogenesis imperfecta and previous stapedotomy presents for updated hearing test. No acute issues since his last visit. Has hearing aids from [facility]. ELOISE DODSON MD [address] [place] [address], [address], [facility] - [facility] 07/13/2024 07:26:12
--- OUTSIDE RECORDS SUMMARY | 2024-08-03 14:29 | XMS_ITS | Continuity of Care Document ---
Author Organization [facility] Address [address] [place] [id number] Care Team Providers Care Health Editor Name Role Phone Bethany CARRASCO, Ashanti Montero Primary Care Physician Encounter [facility] Date(s): 06/08/24 - 07/08/24 [facility] [address] [place] [address] Encounter Type: Triage Allergies, Adverse Reactions, Alerts Substance Criticality Severity Reaction Reaction Severity Status erythromycin Unable to assess criticality Persistent Severe sharp abd pains GI upset Active albuterol Unable to assess criticality Unknown stop breathing Active Immunizations Given and Recorded Vaccine Date Status Refusal Reason influenza virus vaccine, inactivated 04/20/21 Give n SARS-CoV-2 (COVID-19) mRNA BNT-162b2 vac 09/18/20 Recorded SARS-CoV-2 (COVID-19) mRNA BNT-162b2 vac 08/28/20 Recorded Medications acetaminophen 160 mg/5 mL oral suspension 10 mL = 320 mg, By Mouth, Every 6 hours, 0 Refills, Maintenance, 05/03/21 1:13:00 PM EST, Suspension, Partial fill upon patient request if the prescription is for a schedule II opioid drug. Start Date: 05/03/21 Status: Ordered Repeat number: 1 aspirin 81 mg oral delayed release tablet 81 mg, 1, tablet, By Mouth, Daily in AM, # 30 tablet, Refills 0, Maintenance, 05/14/21 11:39:00 AM EST, Partial fill upon patient request if the prescription is for a schedule II opioid drug. Start Date: 05/14/21 Status: Ordered Quantity: 30.0 Unit: tablet Repeat number: 1 ipratropium 500 mcg/2.5 mL inhalation solution 500 mcg, 2.5, mL, Neb, 3 times a day, PRN, # 120 each, Refills 5, Tot. Refills 5, Maintenance, 08/18/22 10:31:00 AM EST, Solution, Route to Pharmacy Electronically, [id number], [facility][id number], 79, cm, 08/18/22 10:26:00 EST, Height, 26, kg, 04/03/22 14:21:00 EDT, Dry Weight Start Date: 08/18/22 Stop Date: 02/14/23 Status: Ordered Quantity: 120.0 Unit: each Repeat number: 6 ipratropium 500 mcg/2.5 mL inhalation solution INHALE 2.5 MLS THREE TIMES DAILY Start Date: 04/19/21 Status: Ordered Repeat number: 1 losartan 50 mg oral tablet 50 mg, 1, tablet, By Mouth, Daily, # 30 tablet, Refills 5, Tot. Refills 5, Maintenance, 01/12/24 3:32:00 PM EDT, Route to Pharmacy Electronically, [facility] #[id number], Partial fill upon patient request if the prescription is for a schedule II opioid drug., 83, cm, 01/12/24 14:33:00 EDT, Height, 25.4, kg, 06/09/23 13:03:00 EST, Dry Weight Start Date: 01/12/24 Status: Ordered Quantity: 30.0 Unit: tablet Repeat number: 6 LOSARTAN 50MG TABLETS LOSARTAN 50MG TABLETS, 1, tablet, By Mouth, Daily, # 30 tablet, 0 Refills, Maintenance, 04/08/24 8:28:00 AM EDT, 83.82, cm, 03/14/24 11:17:00 EDT, Height, 25, kg, 03/11/24 11:18:00 EDT, Dry Weight Start Date: 04/08/24 Status: Ordered Quantity: 30.0 Unit: tablet Repeat number: 1 Ocular Lubricant Eyes, Both, Every 4 hours, PRN Other, Dryness., 0 Refills, Maintenance, 05/03/21 1:14:00 PM EST, Ophth Solution, Partial fill upon patient request if the prescription is for a schedule II opioid drug. Start Date: 05/03/21 Status: Ordered Repeat number: 1 oxyCODONE 5 mg oral capsule 1 capsule = 5 mg, By Mouth, Every 6 hours, PRN as needed for pain, # 10 capsule, 0 Refills, Maintenance, 10/25/23 7:20:00 AM EDT, Capsule, [email or web address] #[id number], Partial fill upon patient requestif the prescription is for a schedule II opioid drug., 83, cm, 06/09/23 13:03:00 EST, Height, 25.4,kg, 06/09/23 13:03:00 EST, Dry Weight Start Date: 10/25/23 Status: Ordered Quantity: 10.0 Unit: capsule Repeat number: 1 Vitamin D3 1000 intl units/10 mL oral liquid = 4,000 units, By Mouth, Daily, Maintenance, 04/19/21 3:36:00 PM EDT, Liquid Start Date: 04/19/21 Status: Ordered Repeat number: 1 Problem List Condition Confirmation Course Effective Dates Status H ealth Status Informant Acute bronchitis Confirmed Active Hearing loss of both ears (R > L) Confirmed Active Hypertension Confirmed Active Severe mitral regurgitation s/p repair 05/2014 Confirmed Active LAURA (obstructive sleep apnea) Confirmed Active Osteogenesis imperfecta Confirmed Active Osteoporosis Confirmed Active Restrictive lung disease due to kyphoscoliosis Confirmed Active Severe obesity (BMI 35.0-39.9) with comorbidity Confirmed Active Dwarfism Confirmed Active Social History Social History Type Response Tobacco Total pack years: 17 . Sex Sex Representation Male (finding) Implantable Device List Procedure Provider Procedure Date Device Type Site Arthrodesis Joint Interphalangeal Proxim Jamshid Garcia MD 03/14/24 Unknown Finger Left 5th Device Identifier Serial Number Lot or Batch Number Manufacturing Date Expiration Date Distinct Identification Code MRI Safety Implantable Status Assigning Authority Unknown [id number] N/A Unknown 11/11/25 Unknown Unknown Active Unknown Patient Care team information Care Team Personnel Name: Viet Beatty RN Position: [facility] RN Member Role: Primary Care Nurse Name: Stella Carmichael RN Position: [facility] RN Member Role: Primary Care Nurse Name: Lily Sánchez RN Position: [facility] SN RN Member Role: Primary Care Nurse Name: Kaycee Londono RN Position: [facility] AMB Nurse Member Role: Primary Care Nurse Name: Jose Alejandro Pérez RN Position: [facility] RN Member Role: Primary Care Nurse Name: Bethany CARRASCO , Ashanti Montero Position: Reference Physician Member Role: PCP Address: [address] [place], [place] [address] Telecom: Name: Chelsey Bob RN Position: [facility] RN Member Role: Primary Care Nurse Name: Alexa Miller RN Position: [facility] RN Member Role: Primary Care Nurse Name: Bella Koenig RN Position: [facility] SN RN Member Role: Primary Care Nurse Name: Ghazal Tang RN Position: [facility] SN RN Member Role: Primary Care Nurse Name: Lavinia Todd RN Position: [facility] RN Member Role: Primary Care Nurse Name: Sheryl Hammond RN Position: [facility] RN Member Role: Primary Care Nurse Name: Lulú Tovar RN Position: [facility] RN Member Role: Primary Care Nurse Name: Marti Jiang RN Position: [facility] Exhaust Machine Operator Member Role: Primary Care Nurse Name: Andrew Seth RN Position: [facility] SN RN Member Role: Primary Care Nurse Care Team Related Persons Name: TI MCCLELLAN Name: MARIO ANDERSON Insurance Providers Guarantor name: MARIO ANDERSON Health Plan Information #: 1 Payer: MEDICARE PART B OUTPT Member Number: NA Policy Number: NA Group Number: NA Health Plan Information #: 2 Payer: NA Member Number: NA Policy Number: NA Group Number: NA Health Plan Information #: 3 Payer: [place] Member Number: NA Policy Number: NA Group Number: NA
--- OUTSIDE RECORDS SUMMARY | 2024-08-03 14:30 | XMS_ITS | Data Portability ---
Author Organization [facility], [facility] Address [address] [place] [address] Care Team Providers Care Tobacco Farmworker Name Role Phone CHRISTY DENNIS Primary Care Provider Assessment Encounter Date Assessment Date Assessment LastModified by Organization Details LastModified Time 03/29/2024 03/29/2024 53-year-old male returns today in follow-up status post left small finger PIP joint arthrodesis on March 14, 2024 who is overall doing wel but after removal of his dressing, one of his 2 pins fell out of his finger. There is no increasing pain or new deformity present after this pin fell out. Sutures removed Steri-Strips were reapplied. He will transition to a custom molded digit based orthosis for the left small finger via occupational therapy. Follow-up in 4 weeks time for recheck, sooner if required [email or web address] Not available 03/29/2024 13:47:41 Plan of Treatment Reminders Order Date Submit Date Provider Last Modified By Organization Details Last Modified Time Details Appointments None recorded. Lab None recorded. Referral occupationa l therapist referral - CUSTOM MOLDED ORTHOSIS SPLINT LEFT SMALL FINGER 2023 024 [email or web address], Josemanuel Manriquez, [place], [address], 09:52:00 occupationa l therapist referral - Diagnosis:s tatus post left small finger PIP joint arthrodesis Custom molded finger orthosis: finger base protecting pip and pin 2023 024 [email or web address] Not available 15:53:00 occupationa l therapist referral - Diagnosis:s tatus post left small finger PIP joint arthrodesis Custom molded please modify current finger orthosis: finger base protecting pip and pin 2023 [email or web address] Not available 4 14:19:12 Procedures None recorded. Surgeries None recorded. Imaging XR, finger(s), 2 or more view - RM 314 3V LEFT SMALL FINGER 2023 024 [email or web address], [address], [address], [place], [address], 4 09:52:01 XR, finger(s), 2 or more view - 2v lt small, po, rm 119 2023 024 [email or web address] [facility], [address], [address], [place], [address], 4 14:52:00 XR, finger(s), 2 or more view - rm 110 3vlsf 2023 024 [email or web address] [facility], [address], [address], [place], [address], 4 14:19:12 XR, finger(s), 2 or more view - 3v lt small finger, po, rm 116 2023 024 [email or web address] [facility], [address], [address], [place], [address], 4 11:13:47 Medication Orders None recorded. Patient TargetsNo targets recorded. Patient Instructions Encounter Date Encounter Id Patient Instructions Last Modified By Organization Details Last Modified Time 04/18/2024 [id number] [facility] Custom Hand Orthosis Information Sheet [address] [place] [address] Name: Cory Weinberg Left Diagnosis: arthrodesis of the left PIP joint small finger Orthosis Code: Finger L 3933 FO Orthosis Style: finger orthosis The PURPOSE for this custom orthosis is to: Finger extension orthosis to protect the pin and maintain digit extension PRECAUTIONS to consider include: HEAT SOURCES: including, but not limited to, the pet crematory worker, dryer, stove, furnace, heater, car (on a hot summer day). PETS: they like to chew the plastic. SKIN: watch for redness, blisters or any skin irritations. CLEANING: use warm soapy water, wipes or outside sales manager to keep the plastic clean, cotton socks and straps can be hand washed. The PLAN is to wear this brace: as needed for protection For modifications to this custom piece please contact your hand therapy provider. If you have not been assigned to hand therapy please call this office to be seen for an adjustment. This orthosis is medically necessary for proper and appropriate treatment of the above noted diagnosis. This orthosis has been custom fabricated by: Ivette BERMEO/Salas, CHT I understand the purpose, precautions and plan for this custom orthosis Patient Signature: [email or web address] Not available 04/18/2024 15:33:07 Reason for Referral Occupational Therapist Refer ral for Fracture of middle phalanx of finger CUSTOM MOLDED ORTHOSIS SPLINT LEFT SMALL FINGER Referring Physician: Randolph Valverde, Orthopedic Surgery, Encounter Date: 03/29/2024 Occupational Therapist Refer ral for Postoperative visit Diagnosis:status post left small finger PIP joint arthrodesisCustom molded finger orthosis: finger base protecting pip and pin Referring Physician: Jamshid Garcia, Orthopedic Surgery, Encounter Date: 04/18/2024 Occupational Therapist Refer ral for Osteoarthritis of proximal interphalangeal joint Diagnosis:status post left small finger PIP joint arthrodesisCustom molded please modify current finger orthosis: finger base protecting pip and pin Referring Physician: Daly Rodrigez, Orthopedic Surgery, Encounter Date: 04/29/2024 Results Created Date Observation Date Name Description Value Unit Range Abnormal Flag Note LastModifiedBy Organization Detail LastModifiedTime 03/29/20 24 03/29/2024 neda OWEN(s), 2 or more view [email or web address]:/ [email or web address] ?Encry pted=s hACatarinoo YD8dLq bEUv6g %2BXZw aYqtaq 0bqfl% 2Fg9IQ a4ajBk vP9nXo QUaueC m3YtLR FvZl JJ8[facility] Hospitaltai3 7k9112 AC0Kqa 3mEUqa vKiQtr MwF INTERFACE [facility] [address], [address], 03/29/2024 13:24:01 03/29/20 24 03/29/2024 XR, finge r(s), 2 or more view [email or web address]:/ [email or web address] ?Encry pted=s hAaTro YD8dLq bEUv6g %2BXZw aYqtaq 0bqfl% 2Fg9IQ a4ajBk vP9nXo QUaueC m3YtLR FvZl JJ8[facility] Hospitaltai3 5p2704 AC0Kqa 3mEUqa vKiQtr MwF INTERFACE [facility] Office [address] [place] [address], [address], 03/29/2024 13:24:03 04/18/20 24 04/18/2024 XR, finge r(s), 2 or more view [email or web address]:/ [email or web address] ?Encry pted=s hAaTro YD8dLq bEUv6g %2BXZw aYqtaq 0bqfl% 2Fg9IQ a4ajBk vP9nXo QUaueC m3YtLR [address] [address] AC0Kqa H%2BGU qegKiQ trMwF INTERFACE [facility] [address], [address], 04/18/2024 14:48:40 04/18/20 24 04/18/2024 XR, finge r(s), 2 or more view [email or web address]:/ [email or web address] ?Encry pted=s hAaTro YD8dLq bEUv6g %2BXZw aYqtaq 0bqfl% 2Fg9IQ a4ajBk vP9nXo QUaueC m3YtLR FvZlgJ JJ8Boone HZtai3 2y6475 AC0Kqa H%2BGU qegKiQ trMwF INTERFACE [facility] [address], [address], 04/18/2024 14:48:42 04/29/20 24 04/29/2024 XR, finge r(s), 2 or more view [email or web address]:/ [email or web address] ?Encry pted=s hAaTro YD8dLq bEUv6g %2BXZw aYqtaq 0bqfl% 2Fg9IQ a4ajBk vP9nXo QUaueC m3YtLR FvZl JJ8mAn HZtai3 7a5142 AC0Kqa HqCU6G hKiQtr MwF INTERFACE [address], [address], 04/29/2024 13:34:14 04/29/20 24 04/29/2024 XR, finge r(s), 2 or more view http:/ [email or web address] ?Encry pted=s hAaTro YD8dLq bEUv6g %2BXZw aYqtaq 0bqfl% 2Fg9IQ a4ajBk vP9nXo QUaueC m3YtLR Zl JJ8mAn HZtai3 1m1905 AC0Kqa HqCU6G hKiQtr MwF INTERFACE [facility] [address], [address], 04/29/2024 13:34:16 06/06/20 24 06/06/2024 XR, finge r(s), 2 or more view http:/ [email or web address] ?Encry pted=s hAaTro YD8dLq bEUv6g %2BXZw aYqtaq 0bqfl% 2Fg9IQ a4ajBk vP9nXo QUaueC m3YtLR FvZlgJ JJ8mAn HZtai3 6t0029 AC0Kqb n%2BDV aGjKiQ trMwF INTERFACE [facility] [address], [place], [address], 06/06/2024 10:29:41 06/06/20 24 06/06/2024 XR, finge r(s), 2 or more view [email or web address]:/ [email or web address] ?Encry pted=s hAaTro YD8dLq bEUv6g %2BXZw aYqtaq 0bqfl% 2Fg9IQ a4ajBk vP9nXo QUaueC m3YtLR FvZlgJ JJ8mAn HZtai3 2z0449 AC0Kqb n%2BDV aGjKiQ trMwF INTERFACE [facility] [address] [facility] [address], [place], [address], 06/06/2024 10:29:43 Result Notes None recorded. Problems Name Problem SNOMED Code Status Onset Date Resolution Date Notes Provider Name and Address Organization Details Recorded Time Fracture of middle phalanx of finger 782512070 Active 2023 Randolph Valverde PA-C [address] [facility] [address], [place], [address] , [facility] 4 11:47:13 Pain of left knee joint 301937254708 107 Active 2018 Problem Code: M25.562; Problem Code Type: ICD-10; Status: 'A'; Not Available [facility] 4 11:43:37 Pain of right knee joint 784885819836 100 Active 2018 Problem Code: M25.561; Problem Code Type: ICD-10; Status: 'A'; Not Available [facility] 4 11:43:37 Closed fracture proximal tibia, bicondyla r 962282386 Active 2018 Problem Code: S82.142A ; Problem Code Type: ICD-10; Status: 'A'; Not Available [facility] 4 11:43:37 Closed fracture of anterior wall of left acetabulu m 670985518932 39732 Active 2018 Problem Code: S32.415A ; Problem Code Type: ICD-10; Status: 'A'; Not Available [facility] 4 11:43:38 Closed supracond ylar fracture of left femur 163139511312 48057 Active 2023 Denia Oneal MD [address], [facility] [place], [address] , [facility] 13:43:09 Problem Notes None recorded. Procedures Surgical History None recorded. Imaging Results Imaging Date Name Status LastModified by Organiz ation Details LastModified Time 03/29/2024 XR, finger(s), 2 or more view completed INTERFACE [facility] [address], [place], [address], 03/29/2024 13:24:01 03/29/2024 XR, finger(s), 2 or more view completed INTERFACE [facility] [address], [place], [address], 03/29/2024 13:24:03 04/18/2024 XR, finger(s), 2 or more view completed INTERFACE [facility] [address], [place], [address], 04/18/2024 14:48:40 04/18/2024 XR, finger(s), 2 or more view completed INTERFACE [facility] [address], [place], [address], 04/18/2024 14:48:42 04/29/2024 XR, finger(s), 2 or more view completed INTERFACE [facility] [address], [place], [address], 04/29/2024 13:34:14 04/29/2024 XR, finger(s), 2 or more view completed INTERFACE [facility] [address], [place], [address], 04/29/2024 13:34:16 06/06/2024 XR, finger(s), 2 or more view completed INTERFACE [facility] [address], [place], [address], 06/06/2024 10:29:41 06/06/2024 XR, finger(s), 2 or more view completed INTERFACE [facility] [address], [place], [address], 06/06/2024 10:29:43 Procedure Notes None recorded. Medical Equipment None Reported. Allergies Allergen ID Allergen Name Allergen Category Reaction Reaction Severity Criticality Documentation Date Start Date Code Code System Note Provider Name and Address Organization Details Recorded Time 497740 erythromy néstor medicatio n hives severe high 11/04/20232023 4053 RxNorm VENTURA slade [facility] 4 15:35:53 045038 albuterol medicatio n respirato ry distress severe Not available 11/04/2023 435 RxNorm JACQUELINE STOUT [facility] 4 11:14:19 321061 erythromy néstor medicatio n abdominal pain moderate Not available 11/23/2023 4053 RxNorm JACQUELINE STOUT [facility] 4 11:14:19 Medications Name Sig Start Date Stop Date Status Note LastModified by Organization Details LastModified Time losartan 50 mg tablet TAKE 1 TABLET BY MOUTH DAILY active Not Available Not Available No t Available enalapril maleate 2.5 mg tablet TAKE 1 TABLET BY MOUTH TWICE DAILY 04/25 completed Not Available Not Available Not Available cephalexin 250 mg/5 mL oral suspension active Not Available Not Available N ot Available oxycodone 5 mg capsule TAKE 1 CAPSULE BY MOUTH EVERY 6 HOURS NEEDED FOR PAIN 11/10 completed Not Available Not Available Not Available fluticasone propionate 50 mcg/actuati on nasal spray,suspe nsion USE 2 SPRAYS INTO BOTH NOSTRILS EVERY MORNING 11/10 completed Not Available Not Available Not Available oxycodone 5 mg tablet TAKE 1 TABLET BY MOUTH EVERY 4 HOURS NEEDED FOR SEVERE PAIN active Not Available Not Available No t Available gabapentin Gabapenti n 250MG/5ML Solution 11/10 completed Statu s: 'Curr ent'; Not Available Not Available Not Available oxycodone HCl-oxycodo ne-ASA oxyCODONE HCl 5MG Tablet 11/10 completed Statu s: 'Curr ent'; Not Available Not Available Not Available Vitals Date Recorded Body height Body mass index (BMI) Body weight Provider Name and Address Organization Details Last Updated DateTime 03/29/2024 93.98 cm 46.2 kg/m2 33974.31 Shon Wright [facility] 03/29/2024 13:03:33 Date Recorded Body height Body mass index (BMI) Body weight Provider Name and Address Organization Details Last Updated DateTime 04/18/2024 93.98 cm 46.2 kg/m2 41679.31 JACQUELINE STOUT [facility] 04/18/2024 14:38:35 Date Recorded Body height Body mass index (BMI) Body weight Provider Name and Address Organization Details Last Updated DateTime 04/29/2024 93.98 cm 46.2 kg/m2 27364.31 KEANU PETERS [facility] 04/29/2024 13:28:15 Date Recorded Body height Body mass index (BMI) Body weight Provider Name and Address Organization Details Last Updated DateTime 06/06/2024 93.98 cm 46.2 kg/m2 27809.31 JACQUELINE STOUT [facility] 06/06/2024 10:25:11 Social History Question Answer Notes LastModified by Organizat ion Details LastModified Time Tobacco Smoking Status Never Smoker LISA slade [facility] 11/18/2023 14:40:37 What Is Your Level Of Alcohol Consumption? Occasional Information not available 11/18/2023 How Many Times Per Week Do You Consume Alcohol? 1-2 Times Per Week Information not available 11/18/2023 Have You Ever Been Counseled For Unhealthy Alcohol Use? No Information not available 11/18/2023 What Is Your Relationship Status? Unknown Information not available 11/18/2023 Do You Use Any Illicit Or Recreational Drugs? No Information not available 11/18/2023 Do You Or Have You Ever Used Any Other Forms Of Tobacco Or Nicotine? No Information not available 11/18/2023 Sex: Unknown Functional Status None recorded. Mental Status None recorded. Family History Nothing Reported. Medical History Condition Response Coronary Artery Disease N Emphysema N COPD N Heart Trouble Y Gastrointestinal Disease N Autoimmune disease N Arthritis Y Blood Clot N Acid Reflux (GERD) N Cancer N Stroke N Circulation Problems N Rheumatoid Arthritis N Arrhythmia N Headaches N Fibromyalgia N Breathing or lung disorders N Nerve Disorders N Kidney/Bladder Problems N Bleeding Disorder N AIDS/HIV N Asthma N Peripheral Vascular Disease N Hepatitis N Pulmonary Embolism N Anxiety/Depression N Pacemaker N Vascular Disease N Orthotics N Allergies/Hayfever N Thyroid Problems N Anemia N Heart Attack (UT) N Cholesterol N Diabetes N Seizures/Epilepsy N Congestive Heart Failure (CHF) N Sleep Apnea Y Heart Disease N Hypertension Y Osteoporosis N Past Encounters Encounter ID Performer Location Encounter Start Date Encounter Closed Date Diagnosis/Indication Diagnosis SNOMED-CT Code Diagnosis ICD10 Code Diagnosis Note [id number] ALE[facility]AND[facility] [address] [place] [address] 11/04/2023 13:05:10 11/26/2023 15:35:51 Injury of hand 461657354 S69.92XA [id number] MD Fouzia Desai 3rd floor [address] [place] [address] 11/11/2023 11:03:26 11/11/2023 13:45:34 Fracture of proximal end of femur 619284185 S72.002D Closed sup racondylar fracture of left femur 6326260515 0689759 S72.452A [id number] ALEKSANDAR Carney [address] [place] [address] 11/18/2023 14:16:51 12/09/2023 13:34:32 Pain of left hand 6278835225 62709 M79.642 Pain in fi nger of left hand 5758302072 50306 M79.658 [id number] MD Arlen N[facility] [address] [place] [address] 11/23/2023 10:33:50 12/01/2023 14:23:35 Pain in finger of left hand 7713011697 43033 M79.645 Fracture o f middle phalanx of finger 002020737 S62.627D [id number] MD Fouzia Desai [address] [place] [address] 12/09/2023 15:15:31 01/05/2024 15:43:11 Closed supracondylar fracture of left femur 7942861718 7656980 S72.452A [id number] MD Fouzia Nix [address] [place] [address] 12/21/2023 11:01:30 01/07/2024 14:52:40 Arthritis of finger of left hand 9373516304 2199372 M13.692 [id number] MD Arlen [facility] [address] [place] [address] 01/19/2024 11:28:23 02/12/2024 13:21:39 Fracture of middle phalanx of finger 901565741 S62.627S [id number] Jamshid Garcia MD [facility] [address] [place] [address] 02/19/2024 16:45:17 02/19/2024 16:46:30 [id number] Randolph Valverde PA-C [facility] [address] [place] [address] 03/29/2024 12:24:51 04/25/2024 09:52:00 Fracture of middle phalanx of finger 646246791 S62.627S [id number] MD Fouzia Nix [address] [place] [address] 04/18/2024 14:20:56 05/05/2024 15:04:52 Pain in finger of left hand 7569077103 87698 M79.645 Postoperative visit 1838 03221 Z48.89 Osteoarthr itis of proximal interphalangeal joint 615869636 M15.2 [id number] Ivette Sultana, OTR/L,CHT [facility] [address] [place] [address] 04/18/2024 15:03:53 04/18/2024 15:33:19 Osteoarthritis of joint of left hand 8374059809 64662 M19.052 [id number] Daly Rodrigez PA-C [facility] [address] [place] [address] 04/29/2024 13:15:32 05/12/2024 13:55:29 Pain of left hand 6267674694 13847 M79.642 Osteoarthr itis of proximal interphalangeal joint 150962868 M15.2 [id number] Jamshid Garcia MD [facility] [address] [place] [address] 06/06/2024 10:20:04 07/01/2024 10:18:01 Pain in finger of left hand 3337865565 46694 M79.645 Arthritis of joint of left hand 9956087214 56655 M19.042 Health Concerns Section Related Observation LastModified by Organization Detai ls LastModified Time None Recorded Concern Status LastModified by Organization Details LastModified Time None Recorded Advance Directives Directive None Recorded Payers Encounter Date Sequence Insurance Name Policy Number Policy Dobbins Covered Member ID Dobbins Member ID Guarantor Name 03/29/2024 1 [employer] (MEDICARE REPLACEMENT PPO) [id number] Cory Rocha Lavash [id number] Cory Rocha Lavash 03/29/2024 2 [place] [facility] Cory Dionna Lavash [id number] Cory Rocha Lavash 04/18/2024 1 [employer] (MEDICARE REPLACEMENT PPO) [id number] Cory Rocha Lavash [id number] Cory Rocha Lavash 04/18/2024 2 [place] [facility] Cory Dionna Lavash [id number] Cory Rocha Lavash 04/18/2024 1 [employer] (MEDICARE REPLACEMENT PPO) [id number] Cory Rocha Lavash [id number] Cory Rocha Lavash 04/18/2024 2 [place] [facility] Cory Weinberg [id number] Cory Weinberg 04/29/2024 1 [employer] (MEDICARE REPLACEMENT PPO) [id number] Cory Giraldoash [id number] Cory Weinberg 04/29/2024 2 [place] [facility] Cory Weinberg [id number] Cory Weinberg 06/06/2024 1 [employer] (MEDICARE REPLACEMENT PPO) [id number] Cory Giraldoash [id number] Cory Weinberg 06/06/2024 2 [place] [facility] Cory Weinberg [id number] Cory Weinberg Notes Date Note Type Note Provider Name and Address Organization Details Recorded Time 03/29/2024 text/html I am seeing the patient today under the supervision of Dr. Quintanilla who was available but who did not see the patient. Surgeon: Dr. GarciaProcedure: Left small finger PIP joint arthrodesisDate of procedure: March 14, 2024 HPI: 53-year-old male returns today in follow-up status post left small finger PIP joint arthrodesis on March 14, 2024. He reports minimal pain. No fevers chills or drainage reported Randolph Valverde PA-C [address], [place], [address], [facility] 03/29/2024 13:47:54 04/18/2024 text/html 03/14/24 Dr. Silvio larsen left small finger PIP arthrodesis procedure with pinning. Referred today for a custom digit orthosis. Ivette Sultana, OTR/L,CHT [address], [place], [address], [facility] 04/18/2024 15:33:14 04/18/2024 text/html Diagnosis: Statu s post-arthrodesis PIP joint left small fingerThe patient returns at our request. He reports that he is pain-free. He finds his pain to be annoying.Past family, medical, social history and review of systems has been reviewed, updated and is located in the patient? s chart.Examination: Healthy appearing patient in no apparent distress. Alert and oriented. Pin site is clean dry and intact. Arthrodesis site is stable. No atrophy in either upper extremity. Brisk capillary refill in all digitsX-rays ordered, obtained, and [facility]: PA and lateral of left small finger reveal one intact pin and evidence of healing of his arthrodesis site.Plan: The patient and I discussed his situation at length. I referred him to a hand therapist for fabrication of a smaller splint protecting PIP joint. He will follow up in 1 month for repeat radiographs. I hope to remove his pin at that time. Jamshid Garcia MD [address], [place], [address], [facility] 04/19/2024 15:49:49 04/29/2024 text/html I am seeing the patient today under the supervision of dr Garcia who was available but who did not see the patient. DX: Status post arthrodesis PIP joint left small finger March 14, 2024Loss of pin HPI: 53-year-old male here for reevaluation. His pin was accidentally removed while taking off his splint. He has no pain. Past family, medical, social history and review of systems has been reviewed, updated and is located in the patient? s chart. Examination: Alert and oriented ? ? 3 . No acute distress. Examination left small finger reveals mild swelling. No palpable tenderness. No instability of the PIP joint. No pain. 1+ cap refill. X-rays ordered, obtained and reviewed at [facility] 3 views left small finger reveals an arthrodesis of the PIP joint. Pin within the PIP joint is absent. Impression/Plan: Findings and the situation discussed. He will continue with immobilization in his left small finger splint for another few weeks. He has a scheduled follow-up with Dr. Garcia for repeat x-rays. Daly Rodrigez PA-C [address], [place], [address], [facility] 04/29/2024 15:44:05 06/06/2024 text/html Diagnosis: Statu s post arthrodesis PIP joint left small fingerOsteogenesis imperfectaThe patient describing a lump around his incision. This is mildly tender. He describes no numbness or tingling.Past family, medical, social history and review of systems has been reviewed, updated and is located in the patient? s chart.Examination: Healthy appearing patient in no apparent distress. Alert and oriented. There is a tiny lump along the radial aspect of the distal part of his incision. His arthrodesis site is stable. No atrophy in either upper extremity. Brisk capillary refill in all digitsX-rays ordered, obtained, and reviewed today at [facility]: PA, lateral, oblique views left small finger reveal intact arthrodesis.Plan: The patient and I discussed his situation at length. This is likely irritation from a Prolene suture. We have agreed to treat this observation for now. If it protrudes to the skin he will contact me to remove the suture. If he finds it too annoying he will contact me to discuss removing in the operating room. He is comfortable with this plan. Jamshid Garcia MD [address] [place] [address] [address], [place], [address], [facility] - [facility] 06/06/2024 10:57:31
--- OUTSIDE RECORDS SUMMARY | 2024-08-03 14:30 | XMS_ITS | Clinical Summary ---
Author Organization [address] [facility] Address [address] [place] [phone] Phone Care Team Providers Care Senior Sales Associate Name Role Phone Unavailable Primary Care Provider Unavailabl e Encounters Date Type Department Care Team Description 07/05/2024 Lab Requisition [facility] - Main Lab [address] [facility] [address] Cedric Mckeon, PA Gross hematuria from Last 3 Months Social History Tobacco Use Types Packs/Day Years Used Date Smoking Tobacco: Never Assessed Sex and Gender Information Value Date Recorded Sex Assigned at Not on file Legal Sex Male 10:09 PM EST Gender Identity Not on file Sexual Orientation Not on file Plan of Treatment Health Maintenance Due Date Last Done Comments DTaP,Tdap,and Td Vaccines (1 - Tdap) 1989 Hepatitis B Vaccines (1 of 3 - 19+ 3-dose series) 1989 Pneumococcal Vaccine: 50+ Ye ars (1 of 1 - PCV) 2020 Zoster Vaccines (1 of 2) 2020 COVID-19 Vaccine ( - 2023-2 5 season) 2024 Influenza Vaccine (#1) 2024 Cholesterol Screening (Lipid Panel) 08/02/2024 Colorectal Cancer Screening: Colonoscopy 08/02/2024 Depression Screening 08/02/2024 HIV Screening 08/02/2024 Hepatitis C Screening 08/02/2024 Medicare Annual Wellness Visit 08/02/2024 Social Influencers of Health Screening 08/02/2024 HIB Vaccines Aged Out No longer eligi ble based on patient's age to complete this topic HPV Vaccines Aged Out No longer eligi ble based on patient's age to complete this topic Hepatitis A Vaccines Aged Out No long er eligible based on patient's age to complete this topic IPV Vaccines Aged Out No longer eligi ble based on patient's age to complete this topic MMR Vaccines Aged Out No longer eligi ble based on patient's age to complete this topic Meningococcal ACWY Vaccine Aged Out N o longer eligible based on patient's age to complete this topic Meningococcal B Vacine Aged Out No lo nger eligible based on patient's age to complete this topic Pneumococcal Vaccine: Pediat rics (0 to 5 Years) and At-Risk Patients (6 to 64 Years) Aged Out No longer eligible b ased on patient's age to complete this topic RSV Immunization Patients Un carmen 20 months Aged Out No longer eligible b ased on patient's age to complete this topic Varicella Vaccines Aged Out No longer eligible based on patient's age to complete this topic Procedures Procedure Name Priority Date/Time Associated Diagnosis Comments AP OUTSIDE CONSULT Routine 06/28/2024 12 :00 AM EST Gross hematuria from Last 3 Months Results * Anatomic pathology outside consult (06/28/2024 12:00 AM EST) Final Diagnosis A. Urine, Voided, (UP25-49): Negative for high grade urothelial carcinoma. 07/13/2024 1:26 PM [facility] Clinical Information Gross hematuria R31.0 Urine Cytology 07/13/2024 1:26 PM [facility] Gross Description A. Urine, Voided, (UP25-49): Received is one ThinPrep slide for cytology. 07/13/2024 1:26 PM [facility] Disclaimer Unless otherwise specified, all tissue is 10% NB formalin fixed and paraffin embedded. Technical pathology services provided by [facility] at [address] [facility] [address], [place] [address] (CLIA #[id number]/S angel Rebolledo MD, Food Safety Auditor) 07/13/2024 1:26 PM [facility] Tissue Urine specimen from urethra / Unknown 06/28/2024 07/05/2024 11:11 AM EST us Cedric EUBANKS LAB PATHOLOGY ORDERABLES Final Result [facility] [address] [place] [address], [place] [phone] from Last 3 Months Insurance [employer] MEDICARE ADVANTAGE MEDICAID - [place]
--- OUTSIDE RECORDS SUMMARY | 2024-08-03 14:30 | XMS_ITS | Encounter Summary ---
Author Organization [facility] Address [address] [place] [address] Care Team Providers Care Evaluator Name Role Phone Unavailable Primary Care Provider Unavailabl e Encounter Details Date Type Department Care Team (Late st Contact Info) Description 07/05/2024 Lab Requisition [facility] - Main Lab [address] [facility] [place] [address] Cedric Mckeon PA [address] [place] [phone] Gross hematuria Social History Tobacco Use Types Packs/Day Years Used Date Smoking Tobacco: Never Assessed Sex and Gender Information Value Date Recorded Sex Assigned at Not on file Legal Sex Male 10:09 PM EST Gender Identity Not on file Sexual Orientation Not on file documented as of this encounter Plan of Treatment Not on file documented as of this encounter Procedures Procedure Name Priority Date/Time Associated Diagnosis Comments AP OUTSIDE CONSULT Routine 06/28/2024 12 :00 AM EST Gross hematuria documented in this encounter Results * Anatomic pathology outside consult (06/28/2024 12:00 AM EST) Final Diagnosis A. Urine, Voided, (UP25-49): Negative for high grade urothelial carcinoma. 07/13/2024 1:26 PM EST [facility] Clinical Information Gross hematuria R31.0 Urine Cytology 07/13/2024 1:26 PM EST [facility] Gross Description A. Urine, Voided, (UP25-49): Received is one ThinPrep slide for cytology. 07/13/2024 1:26 PM EST [facility] Disclaimer Unless otherwise specified, all tissue is 10% NB formalin fixed and paraffin embedded. Technical pathology services provided by [facility] at [address] [facility] [address], [place] [address] (CLIA #[id number]/S angel Rebolledo MD, Outside Energy Sales Representatives) 07/13/2024 1:26 PM EST [facility] Tissue Urine specimen from urethra / Unknown 06/28/2024 07/05/2024 11:11 AM EST us Cedric EUBANKS LAB PATHOLOGY ORDERABLES Final Result [facility] [address] [place] [address], documented in this encounter Visit Diagnoses Diagnosis Gross hematuria documented in this encounter
--- OUTSIDE RECORDS SUMMARY | 2024-08-03 14:30 | XMS_ITS | Continuity of Care Document ---
Author Organization [facility] Address [address] [place] [id number]- Care Team Providers Care Securities Analyst Name Role Phone Bethany CARRASCO, Ashanti Montero Primary Care Physician [place] [facility] [place] 06/10/24 - 07/10/24 [facility] [address] [place] [address] Encounter Type: Triage Allergies, Adverse Reactions, Alerts [...] AM EST, Solution, Route to Pharmacy Electronically, CTPDP_[id number], [facility] #[id number], 79, cm, 08/18/22 10:26:00 EST, Height, 26, [...] 3:32:00 PM EDT, Route to Pharmacy Electronically, [facility] #[id number], Partial fill upon patient request if the [...] Refills, Maintenance, 10/25/23 7:20:00 AM EDT, Capsule, [facility] #[id number], Partial fill upon patient requestif the prescription [...] MRI Safety Implantable Status Assigning Authority Unknown [id number] N/A Unknown 11/11/25 Unknown Unknown Active Unknown Patient Care team information Care Team Personnel Name: Viet Beatty RN Position: [facility] RN Member Role: Primary Care Nurse Name: Stella Carmichael RN Position: [facility] RN Member Role: Primary Care Nurse Name: Lily Sánchez RN Position: [facility] SN RN Member Role: Primary Care Nurse Name: Kaycee Londono RN Position: [facility] AMB Nurse Member Role: Primary Care Nurse Name: Jose Alejandro Pérez RN Position: [facility] RN Member Role: Primary Care Nurse Name: Bethany CARRASCO , Ashanti Montero Position: Reference Physician Member Role: PCP Address: [address] [place], [place] [address] Telecom: Name: Chelsey Bob RN Position: [facility] RN Member Role: Primary Care Nurse Name: Alexa Miller RN Position: [facility] RN Member Role: Primary Care Nurse Name: Bella Koenig RN Position: [facility] SN RN Member Role: Primary Care Nurse Name: Ghazal Tang RN Position: [facility] SN RN Member Role: Primary Care Nurse Name: Lavinia Todd RN Position: [facility] RN Member Role: Primary Care Nurse Name: Sheryl Hammond RN Position: [facility] RN Member Role: Primary Care Nurse Name: Lulú Tovar RN Position: [facility] RN Member Role: Primary Care Nurse Name: Marti Jiang RN Position: [facility] Copy Holder Member Role: Primary Care Nurse Name: Andrew Seth RN Position: [facility] SN RN Member Role: Primary [...]
== END 2024-08-03 14:33 | disposition home or self-care (01) ==
LOC: HO.HMCC 13:07
PROVIDERS: PCP Internal Medicine; Visit Provider Internal Medicine
DX: Q78.0 Osteogenesis imperfecta (principal); M81.0 Age-related osteoporosis without current pathological fracture; N32.89 Other specified disorders of bladder; M54.9 Dorsalgia, unspecified; R10.13 Epigastric pain

== ENCOUNTER → 2024-08-03 13:07 | Outpatient (BNVA) | payer MEDICARE, MEDICAID, SELFPAY | PROVIDERS: PCP Internal Medicine; Visit Provider Internal Medicine | DX: Q78.0 Osteogenesis imperfecta (principal); M81.0 Age-related osteoporosis without current pathological fracture; N32.89 Other specified disorders of bladder; M54.9 Dorsalgia, unspecified; R10.13 Epigastric pain | CPT/HCPCS: 96127; 99212 ==

== ENCOUNTER 2025-02-27 11:57 | Outpatient (AMB) | payer MEDICARE, MEDICAID, SELFPAY ==
--- NOTE | 2025-02-27 12:03 | A.OFFPC_ITS ---
Vital Signs 02/27/25 12:07 BMI Reason not done Patient refused/unable BP 118/70 Blood Pressure Location Lt brachial Position Sitting Respiration 16 Pulse 74 Pulse Source Pulse Oximeter Temp 98.1 F Temp Source Oral Pulse Oximetry (%) 98 Oxygen Delivery Method Room Air Intake Visit Reasons: Annual PE Intake Note: Pt is here today for his PE: Last cologuard 08/29/22 Allergies erythromycin base Allergy (Mild, Verified 02/27/25 12:25) Gastrointestinal Upset, Stomach upset albuterol Allergy (Unknown, Verified 02/27/25 12:25) Difficulty Breathing Medication List - Last Reconciled 02/27/25 by Ashanti Sims MD aspirin (Adult Low Dose Aspirin) 81 mg PO DAILY cholecalciferol (vitamin D3) 100 mcg PO DAILY losartan 50 mg PO DAILY [Motorized wheelchair As directed Replacement wheelchair-with recline and tilt options. ] Tobacco use date assessed: 02/27/25 Dental Screening Dental Screen Date: 02/27/25 Did you have a dental visit in the last 12 months?: No Did you have a dental problem in the last 6 months where you did not have access to dental care?: No Was dental information given to patient?: Patient declined HPI Annual PE HPI Details - The patient is a 54-year-old male with history of osteogenesis imperfecta followed by Endocrine Clinic at [facility], with history of multiple fractures , obstructive and restrictive sleep apnea intolerant of BiPAP or CPAP, here today for his physical exam. - Minor fractures: The patient still wit h a fracture of his left index 5th finger after falling office chair, already by Orthopedics. - The patient reports episodes of vertig o, which were evaluated and found to be consistent with positional vertigo. The vertigo episodes are intermittent and have been associated with previous ear surgery. - has been diagnosed to have bladder wal l irritation, managed by avoiding irritants such as spicy foods. - Vitamin D deficiency: The patient has a history of low vitamin D levels and is currently on supplementation with 4,000 IU daily. - Elevated calcium levels: The patient h ad elevated calcium levels noted in previous lab results, which are being monitored. [facility] Medical History Bladder wall thickening Multiple fractures Myopia of both eyes Cryptorchidism Kyphoscoliosis Intolerance to BiPAP/CPAP Obstructive sleep apnea Mixed hearing loss, bilateral Mitral valve regurgitation Osteoporosis Essential hypertension Restrictive lung disease Osteogenesis imperfecta Surgical History S/P ORIF (open reduction internal fixation) fracture History of stapedectomy S/P balloon mitral valvuloplasty Family History Father Colon cancer, Onset Age: 69 Essential hypertension Asthma Mother Essential hypertension Asthma Social History Housing: Apartment Alcohol intake: current Patient Tobacco Use Status: Former Tobacco user Years Smoked: 17 yrs e-Cigarette/Vaping Use: Never Used Current occupational status: disabled Cognitive needs: No Hearing needs: No Vision needs: Yes Questionnaire PHQ-9 Over the last 2 weeks, how often have you been bothered by any of the following problems? Depression Screening Interpretation: Negative Depression Screening Done: Yes Source: Developed by Drs. Cory Giron, Pao Jiang, Justin Obrien and colleagues, with an educational karon from [employer]. Thrive Questionnaire Date Thrive assessed: 07/31/24 I am a: Patient What is your living situation today?: I have a steady place to live Within the past 12 months, did the food you bought not last and you didn't have the money to get more?: Never true Within the past 12 months, did you worry whether your food would run out before you got money to buy more?: Never true Do you have trouble paying for medicines?: No Do you have trouble getting transportation to medical appointments?: No Do you have trouble paying your heating and electricity bill?: No Do you have trouble taking care of your child, family member or friend?: No Do you have trouble with day-to-day activities such as bathing, preparing meals, shopping, managing finances, etc.?: Yes Are you currently unemployed and looking for a job?: No Are you interested in more education?: No Please select the resources that you would like help with: None Currently or been in a relationship where the following occur: No concerns reported THRIVE Score: 0 PRIYANKA-7 AMB Questionnaire PRIYANKA-7 Date PRIYANKA - 7 assessed: 02/27/25 Feeling nervous, anxious, or on edge: 0 = Not at all Not being able to stop or control worryin = Not at all Worrying too much about different things: 0 = Not at all Trouble relaxin = Not at all Being so restless that it is hard to sit still: 0 = Not at all Becoming easily annoyed or irritable: 0 = Not at all Feeling afraid as if something awful might happen: 0 = Not at all Total PRIYANKA-7 score (0-4 normal; 5-9 mild; 10-14 moderate; 15-21 severe): 0 Source: Developed by Drs. Cory Giron, Pao Jiang, Justin Obrien and colleagues, with an educational karon from [employer]. Review of Systems Const Denies fever(s) and Denies headache(s) Eyes Reports requires corrective lenses ENT Denies headache(s) and Reports hearing loss Card Reports no additional complaints and Denies dyspnea Resp Denies cough and Denies dyspnea GI Reports no additional complaints Reports no additional complaints Musc Details: Uses power wheelchair get around Reports as per HPI Skin/Breast Denies rash and Denies sores Neuro Denies headache(s) Psych Reports no additional complaints Endo Reports as per HPI Lewis/Lymph Reports no additional complaints Aller/Immun Reports no additional complaints Physical exam (Primary Care) Vital Signs: Last Vital Signs Temp 98.1 F 02/27/25 12:07 Pulse 74 02/27/25 12:07 Resp 16 02/27/25 12:07 BP 118/70 02/27/25 12:07 Pulse Ox 98 02/27/25 12:07 Oxygen Delivery Method Room Air 02/27/25 12:07 Tobacco/Smoking Status: Tobacco use Status Tobacco use date assessed 02/27/25 02/27/25 12:04 Patient Tobacco Use Status Former Tobacco user 02/27/25 12:04 e-Cigarette/Vaping Use Never Used 02/27/25 12:04 Depression Screening Interpretation: Negative Thrive Assessment: Date of Thrive Assessment Date Thrive assessed 07/31/24 02/27/25 12:04 Currently or been in a relationship where the following occur: No concerns reported Advance Care Planning discussion: Completed/Scanned Date of discussion: 02/27/25 Who was present: patient Forms completed: Health Care Proxy Time spent: 16-45 minutes Actual minutes spent: 3 Const Other: Alert oriented x3, no acute cardiorespiratory distress, wheelchair borne Orientation/consciousness: patient oriented x3 HENMT Head: No hematoma and No scalp tenderness Face and sinus: Yes face symmetric Mouth: moist mucous membranes Eyes General: appearance normal, both eyes and all related structures Neck Neck: Yes no lymphadenopathy Chest Chest palpation & inspection: no crepitus and no tenderness Resp Effort & Inspection: able to speak in complete sentences Auscultation: clear to auscultation bilaterally Cardio Other: S1-S2 present regular rate and rhythm , systolic murmur left sternal border GI Other: Soft, normal bowel sounds, nontender Back/Spine/Pelvis Other: kyphoscoliosis, no tenderness on palpation Skin Other: Tattoo on left upper arm General skin exam: no rashes or lesions noted Neuro General: patient oriented x3 Cognition (Neuro): normal cognition Extrem Other: Limited range of motion of both shoulder joints left more than the right especially on abduction Psych Appearance: grossly normal and well kempt Mental Status: mental status grossly normal Speech and movement: Normal speech and movement present Affect: normal affect Coding Level of Care Code Est Pt Prev Care 40-64y(12912) Diagnoses Annual visit for general adult medical examination with abnormal findings Z00.01 Osteogenesis imperfecta Q78.0 Essential hypertension I10 Osteoporosis M81.0 Myopia of both eyes H52.13 Bladder wall thickening N32.89 Restrictive lung disease J98.4 Advance directive discussed with patient Z71.89 Mitral valve regurgitation I34.0 Additional Codes Vital Signs *Quality* - Advance Care Planning discussion: Completed/Scanned ([id number]) Vital Signs *Quality* - Time spent: 16-45 minutes ([id number]) Assessment & Plan Assessment & Plan (1) Annual visit for general adult medical examination with abnormal findings: Code(s): Z00.01 - Encounter for general adult medical examination with abnormal findings Plan: Fasting lipid panel basic metabolic panel ordered today. Reminded to get his yearly flu vaccine, COVID booster and up-to-date with his Tdap, reminded as well to get his 2nd shingles vaccine dose (2) Osteogenesis imperfecta: Code(s): Q78.0 - Osteogenesis imperfecta Category: Medical Plan: Currently followed at [facility] endocrine clinic , continued on vitamin-D 300 mcg daily (3) Essential hypertension: Code(s): I10 - Essential (primary) hypertension Category: Medical Plan: Blood pressure at goal of less than 130/80. Continue with losartan 50 mg daily. Reinforced importance of following a low sodium diet, getting regular exercise, and lowering stress levels. (4) Osteoporosis: Code(s): M81.0 - Age-related osteoporosis without current pathological fracture Category: Medical Plan: Followed at [facility] endocrine clinic, currently on vitamin-D 3 supplementation 100 mcg daily (5) Myopia of both eyes: Code(s): H52.13 - Myopia, bilateral Category: Medical Plan: Ferrous corrective lenses reminded to get regular eye exams (6) Bladder wall thickening: Code(s): N32.89 - Other specified disorders of bladder Category: Medical Plan: Followed by Urology (7) Restrictive lung disease: Code(s): J98.4 - Other disorders of lung Category: Medical Plan: Unable to tolerate CPAP or BiPAP (8) Advance directive discussed with patient: Code(s): Z71.89 - Other specified counseling Plan: Initiated the conversation about Advanced Directives. Advanced Directives help patients prepare for current and future decisions about their medical treatment and place of care. Discussed with patient that it is a process where a patients current condition and prognosis are reviewed, their wishes for information regarding their illness are elicited, and likely medical dilemmas are presented and options discussed. Healthcare proxy form completed today. The form can be amended as needed, reviewed yearly and make changes as needed (9) Mitral valve regurgitation: Comment: Dr Joseph Code(s): I34.0 - Nonrheumatic mitral (valve) insufficiency Category: Medical Plan: Followed by cardiology, currently on aspirin 81 mg daily Orders: Orders Lipid Panel 02/27/25 I10 - Essential (primary) hypertension, Z13.220 - Encounter for screening for lipoid disorders Basic Metabolic Panel Fasting 02/27/25 I10 - Essential (primary) hypertension, Z13.220 - Encounter for screening for lipoid disorders
[2025-02-27 12:07] VITALS: BP 118/70; PULSE 74; RESP 16; TEMP 36.7; O2SAT 98
--- OUTSIDE RECORDS SUMMARY | 2025-02-27 14:31 | XMS_ITS | Encounter Summary ---
Author Organization [facility] Address [address] [place] [address] Care Team Providers Care Fur Finisher Tailor Name Role Phone Unavailable Primary Care Provider Unavailabl e Encounter Details Date Type Department Care Team (Late st Contact Info) Description 07/05/2024 Lab Requisition [facility] - Main Lab [address] [facility] [place] [address] Cedric Mckeon PA [address] [place] [phone] Gross hematuria Social History Tobacco Use Types [...] grade urothelial carcinoma. 07/13/2024 1:26 PM EST [facility] Clinical Information Gross hematuria R31.0 Urine Cytology 07/13/2024 1:26 PM EST [facility] Gross Description A. Urine, Voided, (UP25-49): Received is one ThinPrep slide for cytology. 07/13/2024 1:26 PM EST [facility] Disclaimer Unless otherwise specified, all tissue is 10% NB formalin fixed and paraffin embedded. Technical pathology services provided by [facility] at [address] [facility] [address], [place] [address] (CLIA #[id number]/S angel Rebolledo MD, Dried Fruit Washer) 07/13/2024 1:26 PM EST [facility] Tissue Urine specimen from urethra / Unknown 06/28/2024 07/05/2024 11:11 AM EST us Cedric EUBANKS LAB PATHOLOGY ORDERABLES Final Result [facility] [address] [place] [address], documented in this encounter Visit Diagnoses Diagnosis Gross hematuria documented in this encounter
--- OUTSIDE RECORDS SUMMARY | 2025-02-27 14:31 | XMS_ITS ---
Author Name [facility] Organization Unknown Encounters Encounter Type Encounter Reason Primary Diagnosis [facility] Care Team Organization Name Specialty Phone Email [facility]
--- OUTSIDE RECORDS SUMMARY | 2025-02-27 14:31 | XMS_ITS | Clinical Summary ---
Author Organization [address] Address [address] [place] [phone] Phone Care Team Providers Care Water Conservation Specialist Name Role Phone Unavailable Primary Care Provider Unavailabl e Social History Tobacco Use Types Packs/Day Years [...] 2020 Zoster Vaccines (1 of 2) 2020 Depression Screening 06/22/2024 Cholesterol Screening (Lipid Panel) 08/02/2024 Colorectal Cancer Screening: Colonoscopy 08/02/2024 HIV Screening 08/02/2024 Hepatitis C Screening 08/02/2024 Medicare Annual Wellness Visit 08/02/2024 Social Influencers of Health Screening 08/02/2024 COVID-19 Vaccine ( - 2023-2 5 season) 2025 Influenza Vaccine (#1) 2025 HIB Vaccines Aged Out No longer eligi [...] age to complete this topic Meningococcal B Vaccine Aged Out No l onger eligible based on patient's age to complete this topic RSV Immunization Patients Un carmen 20 months Aged Out No longer eligible b ased on patient's age to complete this topic Varicella Vaccines Aged Out No longer eligible based on patient's age to complete this topic Insurance A[employer]NA MEDICARE ADVANTAGE MEDICAID - [place]
== END 2025-02-27 14:15 | disposition home or self-care (01) ==
LOC: HO.HMCC 11:58
PROVIDERS: PCP Internal Medicine; Visit Provider Internal Medicine
DX: Z00.00 Encounter for general adult medical examination without abnormal findings (principal); I10 Essential (primary) hypertension; Q78.0 Osteogenesis imperfecta; M81.0 Age-related osteoporosis without current pathological fracture; H52.13 Myopia, bilateral; N32.89 Other specified disorders of bladder; J98.4 Other disorders of lung; Z71.89 Other specified counseling; I34.0 Nonrheumatic mitral (valve) insufficiency

== ENCOUNTER → 2025-02-27 11:57 | Outpatient (BNVA) | payer MEDICARE, MEDICAID, SELFPAY | PROVIDERS: PCP Internal Medicine; Visit Provider Internal Medicine | DX: Z00.01 Encounter for general adult medical examination with abnormal findings (principal); Q78.0 Osteogenesis imperfecta; R42 Dizziness and giddiness; N32.89 Other specified disorders of bladder; E55.9 Vitamin D deficiency, unspecified; I10 Essential (primary) hypertension; M81.0 Age-related osteoporosis without current pathological fracture; H52.13 Myopia, bilateral; J98.4 Other disorders of lung; I34.0 Nonrheumatic mitral (valve) insufficiency; S62.601D Fracture of unspecified phalanx of left index finger, subsequent encounter for fracture with routine healing; W07.XXXD Fall from chair, subsequent encounter; Z71.89 Other specified counseling | CPT/HCPCS: 96127; 99396 ==

== ENCOUNTER 2025-03-06 12:50 | Outpatient (REF) | payer MEDICARE, MEDICAID, SELFPAY ==
[2025-03-06 16:46] LABS: Anion Gap 12 (12-20); Blood Urea Nitrogen 12 mg/dL (9-16); Calcium 9.3 mg/dL (8.4-10.2); Carbon Dioxide 27 mmol/L (22-29); Chloride 105 mmol/L (96-108); Cholesterol 153 mg/dL (<200); Estimated Glomerular Filt Rate > 60; HDL Cholesterol 65 mg/dL (>40); Potassium 4.0 mmol/L (3.3-5.1); Sodium 140 mmol/L (135-145); Triglycerides 59 mg/dL (<150)
--- OUTSIDE RECORDS SUMMARY | 2025-03-06 17:38 | XMS_ITS | Clinical Summary ---
Author Organization [address] Address [address] [place] [phone] Phone Care Team Providers Care Plow Shaker Name Role Phone Unavailable Primary Care Provider [...]
--- OUTSIDE RECORDS SUMMARY | 2025-03-06 17:38 | XMS_ITS | Encounter Summary ---
Author Organization [facility] Address [address] [place] [address] Care Team Providers Care Utilization Engineer Name Role Phone Unavailable Primary Care Provider Unavailabl e Encounter Details Date Type Department Care Team (Late st Contact Info) Description 07/05/2024 Lab Requisition [facility] - Main Lab [address] [facility] [place] [address] Cedric Mckeon PA [address] [place] [phone] Gross hematuria Social History Tobacco Use Types [...] grade urothelial carcinoma. 07/13/2024 1:26 PM EST [facility] Clinical Information Gross hematuria R31.0 Urine Cytology 07/13/2024 1:26 PM EST [facility] Gross Description A. Urine, Voided, ([id number]): Received is one ThinPrep slide for cytology. 07/13/2024 1:26 PM EST [facility] Disclaimer Unless otherwise specified, all tissue is 10% NB formalin fixed and paraffin embedded. Technical pathology services provided by [facility] at [address] [facility] [address], [place] [address] (CLIA #[id number]/S angel Rebolledo MD, Nuclear Equipment Test Engineer) 07/13/2024 1:26 PM EST [facility] Tissue Urine specimen from urethra / Unknown 06/28/2024 07/05/2024 11:11 AM EST us Ced[facility]AN[facility] PATHOLOGY ORDERABLES Final Result [facility] [address] [place] [address], documented in this encounter Visit Diagnoses Diagnosis Gross hematuria documented in this encounter
== END 2025-03-06 12:51 | disposition home or self-care (01) ==
LOC: HO.HMGCLDS 12:50
PROVIDERS: PCP Internal Medicine; Visit Provider Internal Medicine
DX: I10 Essential (primary) hypertension (principal); Z13.220 Encounter for screening for lipoid disorders
CPT/HCPCS: 36415; 80048; 80061